=== PATIENT | male | born 1940 | race Caucasian/White ===

== ENCOUNTER 2021-01-31 06:24 | Observation (INO) | payer OTHER ==
[2021-01-31 07:03] VITALS: BMI 31.4
[2021-01-31] MEDS ORDERED: LACTATED RINGERS SOLUTION 1,000 ML/1,000 ML INFUS.BAG IV STA (07:48)
[2021-01-31 09:01] LABS: BASO % 0.2 % (0-2.0); EOS % 5.3 % (0-4.5); HEMATOCRIT 48.2 % (35.4-49); HEMOGLOBIN 16.5 GM/dL (11.7-16.9); LYMPH % 9.1 % (8-40); MCHC 34.2 g/dl (32.0-35.9); MEAN CELL VOLUME 84.6 fl (80-96); MEAN PLT VOLUME 8.4 fl (7.5-11.1); MONO % 8.1 % (3.8-10.2); NEUT % 77.3 % (42.8-82.8); PLATELET COUNT 223 10^3/uL (134-434); RBC 5.69 M/mm3 (4.00-5.60); RDW 13.8 % (11.9-15.9); WHITE BLOOD COUNT 10.2 K/mm3 (4.0-10.0)
[2021-01-31 09:03] LABS: VENOUS BASE EXCESS -4.6 mmol/L (-2-2); VENOUS O2 SATURATION 69.1 % (70-80); VENOUS PCO2 40.2 mmHg (38-52); VENOUS PH 7.334 (7.310-7.410)
[2021-01-31 09:21] LABS: CHLORIDE 112 mmol/L (98-107); SODIUM 142 mmol/L (136-145)
[2021-01-31 09:24] LABS: ALBUMIN 4.2 g/dl (3.4-5.0); ANION GAP 9 MMOL/L (8-16); BLOOD UREA NITROGEN 29.4 mg/dL (7-18); CALCIUM 9.5 mg/dL (8.5-10.1); CO2 20 mmol/L (21-32); GLUCOSE,RANDOM 106 mg/dL (74-106)
[2021-01-31 09:26] LABS: SGPT/ALT 50 U/L (13-61)
[2021-01-31 09:28] LABS: CREATININE 1.6 mg/dL (0.55-1.3); LDH 457 U/L (87-246); SGOT/AST 49 U/L (15-37)
[2021-01-31 09:29] LABS: ALK PHOS 102 U/L (45-117); TOT PROT 8.9 g/dl (6.4-8.2)
[2021-01-31 18:13] LABS: CALCIUM 8.9 mg/dL (8.5-10.1)
[2021-01-31 18:14] LABS: BLOOD UREA NITROGEN 31.4 mg/dL (7-18)
[2021-01-31 18:17] LABS: CREATININE 1.2 mg/dL (0.55-1.3)
[2021-01-31] MEDS ORDERED: LACTATED RINGERS SOLUTION 1,000 ML IV SCH (18:30)
[2021-01-31] MEDS ORDERED: HEPARIN NA (PORCINE) 5,000 UNITS/ML 1ML VIAL ONE (23:30)
[2021-01-31] MEDS: HEPARIN NA (PORCINE) 5,000 UNITS/ML 1ML VIAL SQ SCH (23:37)
[2021-02-01 06:02] VITALS: TEMP 98.2
[2021-02-01] MEDS ORDERED: HEPARIN NA (PORCINE) 5,000 UNITS/ML 1ML VIAL ONE ×2 (06:11→14:14)
[2021-02-01] MEDS: HEPARIN NA (PORCINE) 5,000 UNITS/ML 1ML VIAL SQ SCH ×2 (06:15→14:00)
[2021-02-01 08:38] LABS: CALCIUM 8.3 mg/dL (8.5-10.1)
[2021-02-01 08:40] LABS: BASO % 0.4 % (0-2.0); BLOOD UREA NITROGEN 28.7 mg/dL (7-18); EOS % 12.6 % (0-4.5); HEMATOCRIT 41.7 % (35.4-49); HEMOGLOBIN 14.2 GM/dL (11.7-16.9); LYMPH % 18.4 % (8-40); MCH 29.3 pg (25.7-33.7); MEAN CELL VOLUME 86.1 fl (80-96); MEAN PLT VOLUME 8.3 fl (7.5-11.1); MONO % 9.8 % (3.8-10.2); NEUT % 58.8 % (42.8-82.8); PLATELET COUNT 186 10^3/uL (134-434); RBC 4.85 M/mm3 (4.00-5.60); RDW 13.5 % (11.9-15.9); WHITE BLOOD COUNT 9.6 K/mm3 (4.0-10.0)
[2021-02-01 08:41] LABS: CREATININE 0.9 mg/dL (0.55-1.3)
[2021-02-01 08:43] LABS: PHOSPHOROUS 3.5 mg/dL (2.5-4.9)
[2021-02-01 08:45] LABS: BILIRUBIN,TOTAL 0.8 mg/dL (0.2-1)
[2021-02-01 08:52] LABS: ALBUMIN 3.3 g/dl (3.4-5.0); TOT PROT 6.8 g/dl (6.4-8.2)
[2021-02-01] MEDS ORDERED: CELECOXIB 200 MG CAPSULE PO SCH (14:45)
[2021-02-01 15:45] VITALS: BP 141/82; PULSE 100
== END 2021-02-01 16:38 | disposition home or self-care (01) ==
LOC: JER 06:24 → UNDOADMOB 09:48 → INTOOBSV 09:48 → JERBED 09:48
PROVIDERS: ADMIT Internal Medicine; ATTEND Nurse Practitioner Acute Care
PROC: 3E023GC Introduction of Other Therapeutic Substance into Muscle, Percutaneous Approach (ICD-10-PCS; principal; 2021-01-31)
PROC: 3E0337Z Introduction of Electrolytic and Water Balance Substance into Peripheral Vein, Percutaneous Approach (ICD-10-PCS; 2021-01-31)
DX: R53.1 Weakness (principal); R19.7 Diarrhea, unspecified; R11.10 Vomiting, unspecified; R00.2 Palpitations; I65.09 Occlusion and stenosis of unspecified vertebral artery; N17.9 Acute kidney failure, unspecified; Z29.9 Encounter for prophylactic measures, unspecified; E66.9 Obesity, unspecified; Z68.31 Body mass index [BMI] 31.0-31.9, adult; M25.562 Pain in left knee; M25.561 Pain in right knee
CPT/HCPCS: 36415; 71045-TC-FY; 80048; 80053; 80061; 82550; 82728; 82803; 83036; 83605; 83615; 83735; 84100; 84484; 85025; 86140; 87040; 87804; 93005; 93010; 96360; 96372; 99285-25; C9803; G0378; J1644; U0003; U0005

== ENCOUNTER 2021-05-09 03:52 | Emergency (ER) | payer OTHER ==
[2021-05-09 04:17] VITALS: PULSE 81; TEMP 98.1; BMI 36.0
[2021-05-09 06:03] VITALS: BP 145/87
== END 2021-05-09 06:10 | disposition home or self-care (01) ==
LOC: JER 03:52
DX: R09.89 Other specified symptoms and signs involving the circulatory and respiratory systems (principal)
CPT/HCPCS: 71045-TC-FY; 99283-25

== ENCOUNTER 2021-05-20 20:32 | Observation (INO) | payer OTHER ==
[2021-05-20 21:44] LABS: BASO % 0.9 % (0-2.0); EOS % 17.6 % (0-4.5); HEMATOCRIT 40.9 % (35.4-49); LYMPH % 32.1 % (8-40); MCH 28.5 pg (25.7-33.7); MCHC 34.2 g/dl (32.0-35.9); MEAN CELL VOLUME 83.4 fl (80-96); MEAN PLT VOLUME 7.8 fl (7.5-11.1); MONO % 7.8 % (3.8-10.2); NEUT % 41.6 % (42.8-82.8); PLATELET COUNT 188 10^3/uL (134-434); RDW 13.7 % (11.9-15.9); WHITE BLOOD COUNT 7.7 K/mm3 (4.0-10.0)
[2021-05-20 22:05] LABS: CALCIUM 8.2 mg/dL (8.5-10.1)
[2021-05-20 22:06] LABS: ALBUMIN 3.6 g/dl (3.4-5.0); BLOOD UREA NITROGEN 20.3 mg/dL (7-18)
[2021-05-20 22:09] LABS: CREATININE 0.9 mg/dL (0.55-1.3)
[2021-05-20 22:10] LABS: BILIRUBIN,TOTAL 0.4 mg/dL (0.2-1); TOT PROT 7.4 g/dl (6.4-8.2)
[2021-05-20 22:13] LABS: N-TERMINAL BNP 682.3 pg/ml (5-450)
[2021-05-20] MEDS ORDERED: ASPIRIN 81 MG CHEWABLE TABLETS PO ONE (23:30)
[2021-05-20] MEDS ORDERED: ASPIRIN 81 MG CHEWABLE TABLETS ONE (23:34)
[2021-05-21] MEDS ORDERED: ACETAMINOPHEN 325 MG TABLET (FP) PO PRN (01:10)
[2021-05-21] MEDS ORDERED: LOSARTAN POTASSIUM 25 MG TABLET PO SCH (01:15)
[2021-05-21] MEDS ORDERED: LOSARTAN POTASSIUM 50 MG TABLET PO SCH (07:45)
[2021-05-21] MEDS ORDERED: TAMSULOSIN HCL 0.4 MG CAP PO SCH (08:30)
[2021-05-21 09:29] LABS: HEMATOCRIT 41.4 % (35.4-49); HEMOGLOBIN 14.5 GM/dL (11.7-16.9); MCH 29.1 pg (25.7-33.7); MEAN CELL VOLUME 83.3 fl (80-96); PLATELET COUNT 173 10^3/uL (134-434); RBC 4.98 M/mm3 (4.00-5.60); RDW 13.7 % (11.9-15.9); WHITE BLOOD COUNT 6.4 K/mm3 (4.0-10.0)
[2021-05-21 09:46] LABS: EPI CELLS 1 /uL (0-25.1); HYALINE CASTS 0 /uL (0-3.1); URINE APPEARANCE CLEAR; URINE BACTERIA 4 /uL (0-1359); URINE BILIRUBIN NEGATIVE (NEGATIVE); URINE COLOR YELLOW; URINE GLUCOSE (UA) NEGATIVE (NEGATIVE); URINE KETONE NEGATIVE (NEGATIVE); URINE LEUK ESTERASE NEGATIVE (NEGATIVE); URINE NITRITE NEGATIVE (NEGATIVE); URINE PROTEIN NEGATIVE (NEGATIVE); URINE RBC 19 /uL (0-23.9); URINE UROBILINOGEN 0.2 mg/dL (0.2-1.0); URINE WBC 1 /uL (0-25.8)
[2021-05-21 09:49] LABS: CALCIUM 8.2 mg/dL (8.5-10.1)
[2021-05-21 09:50] LABS: BLOOD UREA NITROGEN 14.4 mg/dL (7-18)
[2021-05-21 09:53] LABS: CREATININE 0.8 mg/dL (0.55-1.3)
[2021-05-21] MEDS ORDERED: ENOXAPARIN NA (PORCINE) 40 MG/0.4 ML DISP.SYRIN SQ SCH (10:00)
[2021-05-21] MEDS ORDERED: ASPIRIN 81 MG CHEWABLE TABLETS PO SCH (10:00)
[2021-05-21] MEDS ORDERED: FINASTERIDE 5 MG TABLET (FP) PO SCH (10:00)
[2021-05-21] MEDS ORDERED: amLODIPine BESYLATE 5 MG TABLET (FP) PO SCH (10:00)
[2021-05-21 11:13] VITALS: BMI 30.5
[2021-05-21 17:39] VITALS: BP 120/89; PULSE 87
[2021-05-21 18:37] VITALS: TEMP 98.3
[2021-05-23 00:06] LABS: SARS-CoV-2 NAA Not Detected (Not Detected)
== END 2021-05-21 19:30 | disposition home or self-care (01) ==
LOC: JER 20:32 → JERBED 22:46 → J7W 05-21 08:03
PROVIDERS: ADMIT Hospitalist; ATTEND Internal Medicine
PROC: 3E023GC Introduction of Other Therapeutic Substance into Muscle, Percutaneous Approach (ICD-10-PCS; principal; 2021-05-20)
DX: I24.9 Acute ischemic heart disease, unspecified (principal); I10 Essential (primary) hypertension; E66.8 Other obesity; Z68.30 Body mass index [BMI] 30.0-30.9, adult; M79.10 Myalgia, unspecified site; Z59.00 Homelessness unspecified; F17.210 Nicotine dependence, cigarettes, uncomplicated; E66.9 Obesity, unspecified
CPT/HCPCS: 36415; 71045-TC-FY; 80048; 80053; 81003; 82550; 83036; 83880; 84443; 84484; 85025; 85027; 87086; 93005; 93010; 96372; 97116-GP; 97161-GP; 99285-25; C9803-CS; G0378; U0003; U0005

== ENCOUNTER 2021-09-17 08:33 | Inpatient (IN) | payer OTHER ==
[2021-09-17 08:56] VITALS: BP 183/92; PULSE 79; RESP 16; TEMP 97.9; BMI 29.9
[2021-09-17] MEDS ORDERED: MECLIZINE HCL 12.5 MG TABLET PO ONE (09:36)
[2021-09-17 09:44] LABS: BASO % 0.8 % (0-2.0); EOS % 12.1 % (0-4.5); HEMATOCRIT 42.3 % (35.4-49); HEMOGLOBIN 14.2 GM/dL (11.7-16.9); LYMPH % 26.9 % (8-40); MCH 28.8 pg (25.7-33.7); MCHC 33.7 g/dl (32.0-35.9); MEAN CELL VOLUME 85.3 fl (80-96); MEAN PLT VOLUME 8.2 fl (7.5-11.1); MONO % 7.6 % (3.8-10.2); NEUT % 52.6 % (42.8-82.8); PLATELET COUNT 223 10^3/uL (134-434); RBC 4.95 M/mm3 (4.00-5.60); RDW 13.8 % (11.9-15.9); WHITE BLOOD COUNT 8.2 K/mm3 (4.0-10.0)
[2021-09-17 09:52] LABS: ACTIVATED PTT 26.6 SECONDS (25.2-36.5); INR 1.15 (0.83-1.09); PROTHROMBIN TIME (PATIENT) 13.3 SEC (9.7-13.0)
[2021-09-17] MEDS ORDERED: MECLIZINE HCL 12.5 MG TABLET ONE (09:54)
[2021-09-17 10:30] LABS: CALCIUM 8.7 mg/dL (8.5-10.1)
[2021-09-17 10:31] LABS: ALBUMIN 3.8 g/dl (3.4-5.0); BLOOD UREA NITROGEN 24.4 mg/dL (7-18)
[2021-09-17 10:34] LABS: CREATININE 0.9 mg/dL (0.55-1.3)
[2021-09-17 10:35] LABS: BILIRUBIN,TOTAL 0.6 mg/dL (0.2-1); TOT PROT 7.3 g/dl (6.4-8.2)
[2021-09-17 10:39] LABS: N-TERMINAL BNP 309.8 pg/ml (5-450)
[2021-09-17] MEDS ORDERED: SODIUM CHLORIDE 1,000 ML IV STA (11:04)
[2021-09-17] MEDS ORDERED: LOSARTAN POTASSIUM 50 MG TABLET PO SCH (12:30)
[2021-09-17] MEDS ORDERED: SODIUM CHLORIDE 1,000 ML IV SCH (12:30)
[2021-09-18] MEDS ORDERED: TAMSULOSIN HCL 0.4 MG CAP PO SCH (08:30)
[2021-09-18] MEDS ORDERED: ASPIRIN 81 MG CHEWABLE TABLETS PO SCH (10:00)
[2021-09-18] MEDS ORDERED: FINASTERIDE 5 MG TABLET (FP) PO SCH (10:00)
[2021-09-18] MEDS ORDERED: ENOXAPARIN NA (PORCINE) 40 MG/0.4 ML DISP.SYRIN SQ SCH (10:00)
== END 2021-09-17 15:54 | disposition left against medical advice (07) | DRG 203 ==
LOC: JER 08:33 → JERBED 10:42
PROVIDERS: ADMIT Internal Medicine; ATTEND Internal Medicine
DX: R07.89 Other chest pain (principal); G93.89 Other specified disorders of brain; E86.0 Dehydration; F17.200 Nicotine dependence, unspecified, uncomplicated; I10 Essential (primary) hypertension; R06.02 Shortness of breath; R42 Dizziness and giddiness; R53.1 Weakness; R53.81 Other malaise; R53.83 Other fatigue; Z59.00 Homelessness unspecified; Z91.14 Patient's other noncompliance with medication regimen
CPT/HCPCS: 0241U-QW; 36415; 70450-TC; 71045-TC-FY; 80053; 83880; 84484; 85025; 85610; 85730; 93005; 93010; 99285-25

== ENCOUNTER 2021-09-19 20:59 | Inpatient (IN) | payer OTHER ==
[2021-09-19] MEDS ORDERED: ALBUTEROL SO4 2.5/IPRATROPIUM 0.5 INH SOL 3 ML VIAL.NEB. NEB ONE ×2 (21:57→22:13)
[2021-09-19 23:13] LABS: BASO % 1.1 % (0-2.0); EOS % 15.2 % (0-4.5); HEMATOCRIT 39.5 % (35.4-49); HEMOGLOBIN 13.5 GM/dL (11.7-16.9); LYMPH % 29.7 % (8-40); MCHC 34.3 g/dl (32.0-35.9); MEAN CELL VOLUME 84.6 fl (80-96); MEAN PLT VOLUME 7.7 fl (7.5-11.1); MONO % 9.9 % (3.8-10.2); NEUT % 44.1 % (42.8-82.8); PLATELET COUNT 201 10^3/uL (134-434); RBC 4.67 M/mm3 (4.00-5.60); RDW 13.9 % (11.9-15.9); WHITE BLOOD COUNT 7.5 K/mm3 (4.0-10.0)
[2021-09-20 00:25] LABS: CALCIUM 8.6 mg/dL (8.5-10.1)
[2021-09-20 00:26] LABS: ALBUMIN 3.5 g/dl (3.4-5.0); BLOOD UREA NITROGEN 17.6 mg/dL (7-18)
[2021-09-20 00:29] LABS: CREATININE 0.9 mg/dL (0.55-1.3)
[2021-09-20 00:30] LABS: TOT PROT 6.9 g/dl (6.4-8.2)
[2021-09-20 00:31] LABS: BILIRUBIN,TOTAL 0.4 mg/dL (0.2-1)
[2021-09-20 00:32] LABS: N-TERMINAL BNP 898.7 pg/ml (5-450)
[2021-09-20] MEDS ORDERED: hydrALAZINE HCL 20 MG/ML VIAL IVPUSH ONE (02:43)
[2021-09-20] MEDS ORDERED: hydrALAZINE HCL 20 MG/ML VIAL ONE (02:50)
[2021-09-20] MEDS ORDERED: FUROSEMIDE 40 MG/4 ML INJECTABLE VIAL IVPUSH ONE (04:38)
[2021-09-20] MEDS ORDERED: FUROSEMIDE 40 MG/4 ML INJECTABLE VIAL ONE (05:02)
[2021-09-20 05:48] LABS: PH,URINE 7.5 (5.0-8.0); URINE APPEARANCE CLEAR; URINE BILIRUBIN NEGATIVE (NEGATIVE); URINE COLOR YELLOW; URINE GLUCOSE (UA) NEGATIVE (NEGATIVE); URINE KETONE NEGATIVE (NEGATIVE); URINE LEUK ESTERASE NEGATIVE (NEGATIVE); URINE NITRITE NEGATIVE (NEGATIVE); URINE PROTEIN NEGATIVE (NEGATIVE); URINE UROBILINOGEN 0.2 mg/dL (0.2-1.0)
[2021-09-20 05:58] LABS: COCAINE, UR NEGATIVE (NEGATIVE); METHADONE, UR NEGATIVE (NEGATIVE); OPIATES, URI NEGATIVE (NEGATIVE); PHENCYCLIDINE,URINE NEGATIVE (NEGATIVE); URINE BENZODIAZEPINES NEGATIVE (NEGATIVE)
[2021-09-20 06:18] VITALS: TEMP 97.8; BMI 32.0
[2021-09-20] MEDS ORDERED: LISINOPRIL 20 MG TABLET PO ONE ×2 (06:32→14:00)
[2021-09-20 06:37] LABS: URINE AMPHETAMINES NEGATIVE (NEGATIVE); URINE BARBITURATES NEGATIVE (NEGATIVE)
[2021-09-20] MEDS ORDERED: TAMSULOSIN HCL 0.4 MG CAP PO SCH (08:30)
[2021-09-20] MEDS ORDERED: ENOXAPARIN NA (PORCINE) 40 MG/0.4 ML DISP.SYRIN SQ SCH (10:00)
[2021-09-20] MEDS ORDERED: HYDROCHLOROTHIAZIDE 12.5 MG CAPSULE (FP) PO SCH (10:00)
[2021-09-20 11:33] VITALS: PULSE 91
[2021-09-20 11:37] LABS: HEMATOCRIT 44.5 % (35.4-49); HEMOGLOBIN 15.1 GM/dL (11.7-16.9); MCH 28.9 pg (25.7-33.7); MCHC 33.9 g/dl (32.0-35.9); MEAN CELL VOLUME 85.3 fl (80-96); MEAN PLT VOLUME 8.2 fl (7.5-11.1); PLATELET COUNT 231 10^3/uL (134-434); RBC 5.22 M/mm3 (4.00-5.60); RDW 13.8 % (11.9-15.9); WHITE BLOOD COUNT 8.2 K/mm3 (4.0-10.0)
[2021-09-20 12:00] LABS: CHOLESTEROL 147 mg/dL (50-200); TRIGLYCERIDES 88 mg/dL (0-150)
[2021-09-20 12:01] LABS: LDL CHOLESTEROL (ONLY SJRH) 97 mg/dL (5-100)
[2021-09-20 12:02] LABS: CALCIUM 8.9 mg/dL (8.5-10.1)
[2021-09-20 12:03] LABS: ALBUMIN 3.8 g/dl (3.4-5.0); BLOOD UREA NITROGEN 17.2 mg/dL (7-18); HDL CHOLESTEROL 42 mg/dL (40-60); MAGNESIUM 2.2 mg/dL (1.8-2.4)
[2021-09-20 12:06] LABS: CREATININE 0.9 mg/dL (0.55-1.3); PHOSPHOROUS 3.3 mg/dL (2.5-4.9)
[2021-09-20 12:07] LABS: BILIRUBIN,TOTAL 0.8 mg/dL (0.2-1); TOT PROT 7.4 g/dl (6.4-8.2)
[2021-09-20 14:00] VITALS: BP 134/77; RESP 24
[2021-09-21] MEDS ORDERED: HYDROCHLOROTHIAZIDE 12.5 MG CAPSULE (FP) PO SCH (10:00)
[2021-09-21] MEDS ORDERED: LISINOPRIL 20 MG TABLET PO SCH (10:00)
== END 2021-09-20 12:45 | disposition left against medical advice (07) | DRG 199 ==
LOC: JER 20:59 → JERBED 09-20 02:23 → OBSVTOIN 09-20 03:08 → J2W 09-20 06:40
PROVIDERS: ADMIT Internal Medicine; ATTEND Internal Medicine
DX: I16.0 Hypertensive urgency (principal); I10 Essential (primary) hypertension; E66.9 Obesity, unspecified; I44.4 Left anterior fascicular block; M19.90 Unspecified osteoarthritis, unspecified site; N40.0 Benign prostatic hyperplasia without lower urinary tract symptoms; Z59.00 Homelessness unspecified; Z68.32 Body mass index [BMI] 32.0-32.9, adult; Z91.14 Patient's other noncompliance with medication regimen; R07.89 Other chest pain; R06.02 Shortness of breath
CPT/HCPCS: 36415; 71045-TC-FY; 80053; 80061; 80307; 81003; 83036; 83735; 83880; 84100; 84443; 84484; 85025; 85027; 85379; 93005; 93010; 93306-TC; 99285-25; C9803-CS; G0378; U0003; U0005

== ENCOUNTER 2021-09-22 12:25 | Emergency (ER) | payer OTHER ==
[2021-09-22 12:52] VITALS: BP 123/86; PULSE 93; RESP 18; TEMP 98.5; BMI 33.3
[2021-09-22 15:14] LABS: BLOOD UREA NITROGEN 38.2 mg/dL (7-18); CALCIUM 9.3 mg/dL (8.5-10.1); MAGNESIUM 2.5 mg/dL (1.8-2.4)
[2021-09-22 15:15] LABS: BASO % 0.7 % (0-2.0); CREATININE 1.5 mg/dL (0.55-1.3); EOS % 15.8 % (0-4.5); HEMATOCRIT 44.7 % (35.4-49); HEMOGLOBIN 14.9 GM/dL (11.7-16.9); LYMPH % 24.5 % (8-40); MCH 28.6 pg (25.7-33.7); MCHC 33.4 g/dl (32.0-35.9); MEAN CELL VOLUME 85.8 fl (80-96); MEAN PLT VOLUME 8.5 fl (7.5-11.1); MONO % 8.6 % (3.8-10.2); NEUT % 50.4 % (42.8-82.8); PLATELET COUNT 233 10^3/uL (134-434); RBC 5.21 M/mm3 (4.00-5.60); RDW 14.2 % (11.9-15.9); WHITE BLOOD COUNT 8.6 K/mm3 (4.0-10.0)
[2021-09-22 15:16] LABS: BILIRUBIN,TOTAL 1.1 mg/dL (0.2-1); TOT PROT 7.8 g/dl (6.4-8.2)
== END 2021-09-22 14:26 | disposition left against medical advice (07) ==
LOC: JER 12:25
DX: R07.9 Chest pain, unspecified (principal)
CPT/HCPCS: 36415; 71046-TC-FY; 80053; 83735; 84484; 85025; 93005; 93010; 99285-25; C9803-CS; U0003; U0005

== ENCOUNTER 2021-09-29 07:53 | Emergency (ER) | payer OTHER ==
[2021-09-29 08:38] VITALS: BP 121/71; PULSE 74; RESP 18; TEMP 97.7; BMI 33.3
[2021-09-29] MEDS ORDERED: ALBUTEROL SO4 2.5/IPRATROPIUM 0.5 INH SOL 3 ML VIAL.NEB. NEB ONE ×2 (08:54→10:03)
[2021-09-29 09:56] LABS: BASO % 1.1 % (0-2.0); HEMATOCRIT 41.5 % (35.4-49); HEMOGLOBIN 14.3 GM/dL (11.7-16.9); LYMPH % 21.1 % (8-40); MCH 29.7 pg (25.7-33.7); MCHC 34.4 g/dl (32.0-35.9); MEAN CELL VOLUME 86.2 fl (80-96); MEAN PLT VOLUME 8.8 fl (7.5-11.1); MONO % 6.3 % (3.8-10.2); NEUT % 55.5 % (42.8-82.8); PLATELET COUNT 214 10^3/uL (134-434); RBC 4.81 M/mm3 (4.00-5.60); RDW 13.7 % (11.9-15.9); WHITE BLOOD COUNT 7.8 K/mm3 (4.0-10.0)
[2021-09-29 10:43] LABS: ALBUMIN 3.7 g/dl (3.4-5.0); BILIRUBIN,TOTAL 0.7 mg/dL (0.2-1); BLOOD UREA NITROGEN 27.6 mg/dL (7-18); CALCIUM 9.1 mg/dL (8.5-10.1); CREATININE 0.8 mg/dL (0.55-1.3); TOT PROT 7.5 g/dl (6.4-8.2)
== END 2021-09-29 12:46 | disposition home or self-care (01) ==
LOC: JER 07:53
PROC: 3E0F7GC Introduction of Other Therapeutic Substance into Respiratory Tract, Via Natural or Artificial Opening (ICD-10-PCS; principal; 2021-09-29)
DX: R06.02 Shortness of breath (principal)
CPT/HCPCS: 36415; 71046-TC-FY; 80053; 85025; 93005; 93010; 99285-25

== ENCOUNTER → 2021-10-03 | Emergency (ER) | payer OTHER ==
[2021-10-03 10:24] VITALS: BP 145/81; PULSE 78; RESP 18; TEMP 97.9; BMI 29.9
== END | disposition left against medical advice (07) ==
LOC: JER 10:00
DX: R07.9 Chest pain, unspecified (principal)
CPT/HCPCS: 93005; 93010; 99283-25

== ENCOUNTER 2021-10-04 17:04 | Emergency (ER) | payer OTHER ==
[2021-10-04 17:17] VITALS: BP 154/97; PULSE 77; RESP 18; TEMP 98.3; BMI 29.9
== END 2021-10-04 21:21 | disposition home or self-care (01) ==
LOC: JER 17:04
DX: Z00.00 Encounter for general adult medical examination without abnormal findings (principal)
CPT/HCPCS: 93005; 93010; 99284-25

== ENCOUNTER 2021-10-15 09:23 | Observation (INO) | payer OTHER ==
[2021-10-15 09:43] VITALS: BP 168/94; PULSE 75; RESP 18; TEMP 98.1; BMI 29.2
[2021-10-15 11:07] LABS: HEMATOCRIT 42.9 % (35.4-49); HEMOGLOBIN 14.2 GM/dL (11.7-16.9); MCH 28.5 pg (25.7-33.7); MCHC 33.2 g/dl (32.0-35.9); MEAN PLT VOLUME 8.1 fl (7.5-11.1); PLATELET COUNT 207 10^3/uL (134-434); RBC 4.99 M/mm3 (4.00-5.60); RDW 13.4 % (11.9-15.9); WHITE BLOOD COUNT 7.6 K/mm3 (4.0-10.0)
[2021-10-15 11:16] LABS: CALCIUM 8.9 mg/dL (8.5-10.1)
[2021-10-15 11:17] LABS: ALBUMIN 3.8 g/dl (3.4-5.0)
[2021-10-15 11:18] LABS: ACTIVATED PTT 29.3 SECONDS (25.2-36.5); INR 1.15 (0.83-1.09); PROTHROMBIN TIME (PATIENT) 13.2 SEC (9.7-13.0)
[2021-10-15 11:20] LABS: CREATININE 0.9 mg/dL (0.55-1.3); TOT PROT 7.3 g/dl (6.4-8.2)
[2021-10-15 11:22] LABS: BILIRUBIN,TOTAL 0.7 mg/dL (0.2-1)
[2021-10-15 12:20] LABS: ANISOCYTOSIS 2+; MACROCYTOSIS 0; OVALOCYTE 1+; TEAR DROP CELLS 1+
[2021-10-16] MEDS ORDERED: TAMSULOSIN HCL 0.4 MG CAP PO SCH (08:30)
[2021-10-16] MEDS ORDERED: FINASTERIDE 5 MG TABLET (FP) PO SCH (10:00)
[2021-10-16] MEDS ORDERED: ASPIRIN 81 MG CHEWABLE TABLETS PO SCH (10:00)
[2021-10-16] MEDS ORDERED: LOSARTAN POTASSIUM 50 MG TABLET PO SCH (10:00)
== END 2021-10-15 15:20 | disposition left against medical advice (07) ==
LOC: JER 09:23 → JERBED 10:09
PROVIDERS: ADMIT Internal Medicine; ATTEND Internal Medicine
DX: I11.0 Hypertensive heart disease with heart failure (principal); R06.02 Shortness of breath; N40.0 Benign prostatic hyperplasia without lower urinary tract symptoms; D64.9 Anemia, unspecified
CPT/HCPCS: 0241U-QW; 36415; 71045-TC-FY; 80053; 83880; 84484; 85025; 85610; 85730; 93005; 93010; 99285-25; G0378

== ENCOUNTER 2021-10-15 16:47 | Observation (INO) | payer OTHER ==
[2021-10-15 17:13] VITALS: BP 161/95; PULSE 83; RESP 22; TEMP 98.6; BMI 39.9
[2021-10-15] MEDS ORDERED: ALBUTEROL SO4 HFA INHALER IH PRN (18:27)
[2021-10-15] MEDS ORDERED: FUROSEMIDE 20 MG TABLET (FP) PO SCH (18:30)
[2021-10-16] MEDS ORDERED: TAMSULOSIN HCL 0.4 MG CAP PO SCH (08:30)
[2021-10-16] MEDS ORDERED: LOSARTAN POTASSIUM 50 MG TABLET PO SCH (10:00)
[2021-10-16] MEDS ORDERED: ASPIRIN 81 MG CHEWABLE TABLETS PO SCH (10:00)
[2021-10-16] MEDS ORDERED: FINASTERIDE 5 MG TABLET (FP) PO SCH (10:00)
== END 2021-10-15 19:22 | disposition left against medical advice (07) ==
LOC: JER 16:47 → JERBED 17:58
PROVIDERS: ADMIT Internal Medicine; ATTEND Internal Medicine
DX: R07.9 Chest pain, unspecified (principal); R06.02 Shortness of breath; I10 Essential (primary) hypertension; J44.9 Chronic obstructive pulmonary disease, unspecified; N40.0 Benign prostatic hyperplasia without lower urinary tract symptoms; Z87.891 Personal history of nicotine dependence; E66.8 Other obesity; Z68.39 Body mass index [BMI] 39.0-39.9, adult
CPT/HCPCS: 99285-25; G0378

== ENCOUNTER 2021-11-07 09:08 | Observation (INO) | payer OTHER ==
[2021-11-07 10:36] LABS: HEMATOCRIT 41.1 % (35.4-49); HEMOGLOBIN 13.6 GM/dL (11.7-16.9); MCH 28.4 pg (25.7-33.7); MCHC 33.1 g/dl (32.0-35.9); MEAN CELL VOLUME 85.7 fl (80-96); PLATELET COUNT 215 10^3/uL (134-434); RDW 13.5 % (11.9-15.9); WHITE BLOOD COUNT 7.3 K/mm3 (4.0-10.0)
[2021-11-07 10:50] LABS: ALBUMIN 3.4 g/dl (3.4-5.0); CALCIUM 8.5 mg/dL (8.5-10.1)
[2021-11-07 10:54] LABS: CREATININE 0.9 mg/dL (0.55-1.3)
[2021-11-07 10:55] LABS: BILIRUBIN,TOTAL 0.7 mg/dL (0.2-1); TOT PROT 6.8 g/dl (6.4-8.2)
[2021-11-07 12:06] LABS: ANISOCYTOSIS 0; MACROCYTOSIS 0
[2021-11-07] MEDS ORDERED: AZITHROMYCIN IVPB 500 MG in DEXTROSE 5%-WATER - 250 ML IVPB ONE (12:27)
[2021-11-07] MEDS ORDERED: CEFTRIAXONE 1,000 MG in DEXTROSE 5%-WATER - 50 ML IVPB ONE (12:27)
[2021-11-07] MEDS ORDERED: CEFTRIAXONE 1 GM/50 ML BAG ONE (12:36)
[2021-11-07] MEDS ORDERED: AZITHROMYCIN IVPB 500 MG/250 ML BAG IVPB ONE (12:36)
[2021-11-07] MEDS ORDERED: ACETAMINOPHEN 325 MG TABLET (FP) PO PRN (13:53)
[2021-11-07] MEDS ORDERED: guaiFENesin 200 MG/10 ML 10 ML UNIT-DOSE CUPS PO PRN (14:59)
[2021-11-07] MEDS ORDERED: MELATONIN 5 MG TABLETS PO PRN (15:00)
[2021-11-07] MEDS: NYSTATIN POWDER 100,000 UNITS/GM - 15 GM TOPICAL POWDER TP SCH ×2 (15:04→23:41)
[2021-11-07] MEDS ORDERED: LOSARTAN POTASSIUM 50 MG TABLET ONE (17:39)
[2021-11-07] MEDS: LOSARTAN POTASSIUM 50 MG TABLET PO SCH (17:41)
[2021-11-07 20:30] VITALS: RESP 18
[2021-11-07 23:16] VITALS: BMI 31.7
[2021-11-08] MEDS: NYSTATIN POWDER 100,000 UNITS/GM - 15 GM TOPICAL POWDER TP SCH ×3 (06:29→21:29)
[2021-11-08] MEDS ORDERED: CEFTRIAXONE 1 GM in DEXTROSE 5%-WATER - 50 ML IVPB SCH (10:00)
[2021-11-08] MEDS ORDERED: AZITHROMYCIN IVPB 250 MG in DEXTROSE 5%-WATER - 250 ML IVPB SCH (10:00)
[2021-11-08] MEDS: LOSARTAN POTASSIUM 50 MG TABLET PO SCH (11:51)
[2021-11-08] MEDS: ENOXAPARIN NA (PORCINE) 40 MG/0.4 ML DISP.SYRIN SQ SCH (11:51)
[2021-11-08] MEDS ORDERED: amLODIPine BESYLATE 10 MG TABLET (FP) PO SCH (12:54)
[2021-11-08] MEDS: AZITHROMYCIN 250 MG TABLET PO SCH (12:59)
[2021-11-08] MEDS: CEFUROXIME AXETIL 500 MG TABLET PO SCH ×2 (12:59→21:29)
[2021-11-08] MEDS ORDERED: amLODIPine BESYLATE 10 MG TABLET (FP) PO ONE (14:35)
[2021-11-08] MEDS ORDERED: LOSARTAN POTASSIUM 50 MG TABLET PO SCH (22:00)
[2021-11-09] MEDS: NYSTATIN POWDER 100,000 UNITS/GM - 15 GM TOPICAL POWDER TP SCH ×2 (06:11→14:25)
[2021-11-09 09:56] LABS: EOS % 18.9 % (0-4.5); HEMATOCRIT 44.4 % (35.4-49); HEMOGLOBIN 14.8 GM/dL (11.7-16.9); LYMPH % 25.4 % (8-40); MCH 28.6 pg (25.7-33.7); MCHC 33.4 g/dl (32.0-35.9); MEAN CELL VOLUME 85.7 fl (80-96); MEAN PLT VOLUME 8.2 fl (7.5-11.1); MONO % 7.2 % (3.8-10.2); NEUT % 47.5 % (42.8-82.8); PLATELET COUNT 232 10^3/uL (134-434); RBC 5.18 M/mm3 (4.00-5.60); RDW 13.2 % (11.9-15.9); WHITE BLOOD COUNT 6.4 K/mm3 (4.0-10.0)
[2021-11-09] MEDS ORDERED: amLODIPine BESYLATE 5 MG TABLET (FP) PO SCH (10:00)
[2021-11-09] MEDS ORDERED: FUROSEMIDE 40 MG TABLET (FP) PO SCH (10:00)
[2021-11-09] MEDS ORDERED: LOSARTAN POTASSIUM 50 MG TABLET PO SCH (10:00)
[2021-11-09 10:33] LABS: BLOOD UREA NITROGEN 18.6 mg/dL (7-18); MAGNESIUM 2.2 mg/dL (1.8-2.4)
[2021-11-09 10:36] LABS: CREATININE 0.9 mg/dL (0.55-1.3); PHOSPHOROUS 3.8 mg/dL (2.5-4.9)
[2021-11-09] MEDS: ENOXAPARIN NA (PORCINE) 40 MG/0.4 ML DISP.SYRIN SQ SCH (11:00)
[2021-11-09] MEDS: AZITHROMYCIN 250 MG TABLET PO SCH (11:00)
[2021-11-09] MEDS: CEFUROXIME AXETIL 500 MG TABLET PO SCH (11:00)
[2021-11-09] MEDS ORDERED: amLODIPine BESYLATE 10 MG TABLET (FP) PO SCH ×2 (12:54→22:00)
[2021-11-09 15:25] VITALS: BP 131/67; PULSE 81; TEMP 97.9
== END 2021-11-09 17:45 | disposition home or self-care (01) ==
LOC: JER 09:08 → JERBED 12:33 → J5S 22:01
PROVIDERS: ADMIT Internal Medicine; ATTEND Internal Medicine
PROC: 3E03329 Introduction of Other Anti-infective into Peripheral Vein, Percutaneous Approach (ICD-10-PCS; principal; 2021-11-07)
PROC: 3E023GC Introduction of Other Therapeutic Substance into Muscle, Percutaneous Approach (ICD-10-PCS; 2021-11-07)
DX: J18.9 Pneumonia, unspecified organism (principal); I10 Essential (primary) hypertension; N40.0 Benign prostatic hyperplasia without lower urinary tract symptoms; R21 Rash and other nonspecific skin eruption; Z29.8 Encounter for other specified prophylactic measures; Z91.14 Patient's other noncompliance with medication regimen; Z59.00 Homelessness unspecified; E66.8 Other obesity; Z68.31 Body mass index [BMI] 31.0-31.9, adult
CPT/HCPCS: 0241U-QW; 36415; 71045-TC-FY; 80048; 80053; 80061; 83036; 83735; 84100; 84439; 84443; 84484; 85025; 87899; 93005; 93010; 99285-25; G0378

== ENCOUNTER 2021-11-19 14:11 | Emergency (ER) | payer OTHER ==
[2021-11-19 14:37] VITALS: BP 121/78; PULSE 85; RESP 17; TEMP 98; BMI 32.3
== END 2021-11-19 16:33 | disposition left against medical advice (07) ==
LOC: JER 14:11
DX: R07.89 Other chest pain (principal)
CPT/HCPCS: 93005; 93010; 99284-25

== ENCOUNTER 2021-11-19 19:06 | Emergency (ER) | payer OTHER ==
[2021-11-19 19:15] VITALS: BP 100/61; PULSE 65; RESP 19; TEMP 98.6; BMI 32.3
== END 2021-11-19 22:12 | disposition home or self-care (01) ==
LOC: JER 19:06
DX: R07.89 Other chest pain (principal)
CPT/HCPCS: 36415; 71046-TC-FY; 83880; 84484; 93005; 93010; 99284-25

== ENCOUNTER 2022-01-07 09:31 | Emergency (ER) | payer OTHER ==
[2022-01-07 09:47] VITALS: PULSE 80; RESP 18; TEMP 97.6; BMI 32.3
[2022-01-07 12:15] LABS: EPI CELLS 4 /uL (0-25.1); HYALINE CASTS 0 /uL (0-3.1); URINE APPEARANCE CLEAR; URINE BACTERIA 20 /uL (0-1359); URINE BILIRUBIN NEGATIVE (NEGATIVE); URINE COLOR YELLOW; URINE GLUCOSE (UA) NEGATIVE (NEGATIVE); URINE KETONE NEGATIVE (NEGATIVE); URINE LEUK ESTERASE TRACE (NEGATIVE); URINE NITRITE NEGATIVE (NEGATIVE); URINE PROTEIN TRACE (NEGATIVE); URINE RBC 12 /uL (0-23.9); URINE UROBILINOGEN 0.2 mg/dL (0.2-1.0); URINE WBC 6 /uL (0-25.8)
[2022-01-07 12:35] LABS: CALCIUM 8.5 mg/dL (8.5-10.1)
[2022-01-07 12:37] LABS: ALBUMIN 3.8 g/dl (3.4-5.0); BLOOD UREA NITROGEN 23.3 mg/dL (7-18)
[2022-01-07 12:40] LABS: BILIRUBIN,TOTAL 0.8 mg/dL (0.2-1); CREATININE 0.9 mg/dL (0.55-1.3); TOT PROT 7.4 g/dl (6.4-8.2)
[2022-01-07 12:41] LABS: BASO % 0.7 % (0-2.0); EOS % 16.9 % (0-4.5); HEMATOCRIT 43.2 % (35.4-49); HEMOGLOBIN 14.5 GM/dL (11.7-16.9); LYMPH % 26.9 % (8-40); MCH 28.4 pg (25.7-33.7); MCHC 33.7 g/dl (32.0-35.9); MEAN CELL VOLUME 84.5 fl (80-96); MEAN PLT VOLUME 7.4 fl (7.5-11.1); MONO % 8.9 % (3.8-10.2); NEUT % 46.6 % (42.8-82.8); PLATELET COUNT 214 10^3/uL (134-434); RBC 5.11 M/mm3 (4.00-5.60); RDW 13.2 % (11.9-15.9); WHITE BLOOD COUNT 6.8 K/mm3 (4.0-10.0)
[2022-01-07 15:57] VITALS: BP 137/108
== END 2022-01-07 15:57 | disposition home or self-care (01) ==
LOC: JER 09:31
DX: N40.1 Benign prostatic hyperplasia with lower urinary tract symptoms (principal)
CPT/HCPCS: 36415; 71046-TC-FY; 80053; 81003; 82962; 84484; 85025; 87086; 93005; 93010; 99285-25

== ENCOUNTER 2022-01-13 23:13 | Emergency (ER) | payer OTHER ==
[2022-01-13 23:25] VITALS: BP 160/89; PULSE 90; RESP 20; TEMP 98.9; BMI 40.7
== END 2022-01-14 06:33 | disposition home or self-care (01) ==
LOC: JER 23:13
DX: J06.9 Acute upper respiratory infection, unspecified (principal)
CPT/HCPCS: 0241U-QW; 99284-25

== ENCOUNTER 2022-03-13 03:21 | Observation (INO) | payer OTHER ==
[2022-03-13 03:31] VITALS: RESP 18; TEMP 97.6; BMI 31.3
[2022-03-13] MEDS ORDERED: NITROGLYCERIN SUBLINGUAL 1/150 0.4 MG TAB SL ONE (04:11)
[2022-03-13 04:43] VITALS: BP 177/88
[2022-03-13] MEDS ORDERED: ACETAMINOPHEN 1000 MG/100 ML BAG IVPB ONE (04:45)
[2022-03-13] MEDS ORDERED: ACETAMINOPHEN INJECTION 100 ML IVPB ONE (04:48)
[2022-03-13 05:50] LABS: BASO % 0.6 % (0-2.0); EOS % 14.4 % (0-4.5); HEMATOCRIT 45.2 % (35.4-49); LYMPH % 24.2 % (8-40); MCH 28.2 pg (25.7-33.7); MCHC 33.1 g/dl (32.0-35.9); MEAN CELL VOLUME 85.1 fl (80-96); MEAN PLT VOLUME 8.1 fl (7.5-11.1); MONO % 8.2 % (3.8-10.2); NEUT % 52.6 % (42.8-82.8); PLATELET COUNT 206 10^3/uL (134-434); RBC 5.32 M/mm3 (4.00-5.60); RDW 13.9 % (11.9-15.9); WHITE BLOOD COUNT 6.9 K/mm3 (4.0-10.0)
[2022-03-13] MEDS ORDERED: FUROSEMIDE 40 MG TABLET (FP) PO ONE (06:03)
[2022-03-13] MEDS ORDERED: FUROSEMIDE 40 MG TABLET (FP) ONE (06:06)
[2022-03-13] MEDS ORDERED: amLODIPine BESYLATE 10 MG TABLET (FP) PO ONE (06:06)
[2022-03-13] MEDS ORDERED: LOSARTAN POTASSIUM 50 MG TABLET ONE (06:06)
[2022-03-13] MEDS ORDERED: TAMSULOSIN HCL 0.4 MG CAP ONE (06:06)
[2022-03-13] MEDS ORDERED: amLODIPine BESYLATE 10 MG TABLET (FP) ONE (06:07)
[2022-03-13 06:12] LABS: BLOOD UREA NITROGEN 21.9 mg/dL (7-18); CALCIUM 8.9 mg/dL (8.5-10.1)
[2022-03-13 06:13] LABS: ALBUMIN 3.8 g/dl (3.4-5.0)
[2022-03-13 06:16] LABS: CREATININE 0.8 mg/dL (0.55-1.3)
[2022-03-13 06:17] LABS: BILIRUBIN,TOTAL 0.5 mg/dL (0.2-1); TOT PROT 7.5 g/dl (6.4-8.2)
[2022-03-13] MEDS ORDERED: TAMSULOSIN HCL 0.4 MG CAP PO ONE (06:26)
[2022-03-13] MEDS ORDERED: LOSARTAN POTASSIUM 50 MG TABLET PO ONE (06:27)
== END 2022-03-13 07:50 | disposition left against medical advice (07) ==
LOC: JER 03:21 → JERBED 06:31
PROVIDERS: ADMIT Internal Medicine; ATTEND Internal Medicine
PROC: 3E033NZ Introduction of Analgesics, Hypnotics, Sedatives into Peripheral Vein, Percutaneous Approach (ICD-10-PCS; principal; 2022-03-13)
DX: R06.02 Shortness of breath (principal); R10.9 Unspecified abdominal pain; R05.9 Cough, unspecified; R07.9 Chest pain, unspecified; I10 Essential (primary) hypertension; E11.9 Type 2 diabetes mellitus without complications; N40.0 Benign prostatic hyperplasia without lower urinary tract symptoms
CPT/HCPCS: 0241U-QW; 36415; 71045-TC-FY; 80053; 84484; 85025; 93005; 93010; 96374; 99285-25; G0378

== ENCOUNTER 2022-03-13 16:37 | Emergency (ER) | payer OTHER ==
[2022-03-13 17:57] VITALS: BP 139/76; PULSE 86; RESP 16; TEMP 97.7; BMI 28.7
== END 2022-03-13 21:23 | disposition left against medical advice (07) ==
LOC: JER 16:37
DX: M79.604 Pain in right leg (principal); M79.605 Pain in left leg; Z59.00 Homelessness unspecified
CPT/HCPCS: 93005; 93010; 99283-25

== ENCOUNTER 2022-03-23 09:12 | Emergency (ER) | payer OTHER ==
[2022-03-23 09:36] VITALS: BP 187/87; PULSE 72; RESP 16; TEMP 97.8; BMI 28.7
[2022-03-23] MEDS ORDERED: ACETAMINOPHEN 325 MG TABLET (FP) PO ONE (11:07)
[2022-03-23] MEDS ORDERED: ACETAMINOPHEN 325 MG TABLET (FP) ONE (11:08)
[2022-03-23] MEDS ORDERED: IBUPROFEN 400 MG TABLET (FP) PO ONE ×2 (11:08)
== END 2022-03-23 12:09 | disposition home or self-care (01) ==
LOC: JERFT 09:12 → JER 09:12 → JERFT 12:09
DX: M54.50 Low back pain, unspecified (principal)
CPT/HCPCS: 99283-25

== ENCOUNTER 2022-03-28 15:39 | Emergency (ER) | payer OTHER ==
[2022-03-28 15:55] VITALS: BP 170/82; PULSE 88; RESP 20; TEMP 97.9; BMI 28.7
== END 2022-03-28 18:30 | disposition left against medical advice (07) ==
LOC: JER 15:39
DX: R07.9 Chest pain, unspecified (principal); Z59.00 Homelessness unspecified
CPT/HCPCS: 71046-TC-FY; 93005; 93010; 99284-25

== ENCOUNTER 2022-03-29 11:24 | Emergency (ER) | payer OTHER ==
[2022-03-29 11:32] VITALS: BP 173/86; PULSE 76; RESP 18; TEMP 98.3; BMI 28.7
[2022-03-29] MEDS ORDERED: ACETAMINOPHEN 325 MG TABLET (FP) PO ONE ×2 (11:53→12:27)
[2022-03-29] MEDS ORDERED: ACETAMINOPHEN 325 MG TABLET (FP) ONE (12:24)
[2022-03-29 13:28] LABS: BASO % 0.6 % (0-2.0); EOS % 16.6 % (0-4.5); HEMATOCRIT 40.4 % (35.4-49); HEMOGLOBIN 13.6 GM/dL (11.7-16.9); MCH 28.4 pg (25.7-33.7); MCHC 33.5 g/dl (32.0-35.9); MEAN CELL VOLUME 84.8 fl (80-96); MEAN PLT VOLUME 7.5 fl (7.5-11.1); MONO % 6.3 % (3.8-10.2); NEUT % 49.5 % (42.8-82.8); PLATELET COUNT 197 10^3/uL (134-434); RBC 4.77 M/mm3 (4.00-5.60); RDW 14.1 % (11.9-15.9); WHITE BLOOD COUNT 6.4 K/mm3 (4.0-10.0)
[2022-03-29 13:50] LABS: ALBUMIN 3.5 g/dl (3.4-5.0); BLOOD UREA NITROGEN 15.7 mg/dL (7-18); CALCIUM 8.5 mg/dL (8.5-10.1); MAGNESIUM 2.1 mg/dL (1.8-2.4)
[2022-03-29 13:53] LABS: CREATININE 0.8 mg/dL (0.55-1.3)
[2022-03-29 13:55] LABS: BILIRUBIN,TOTAL 0.5 mg/dL (0.2-1); TOT PROT 6.8 g/dl (6.4-8.2)
== END 2022-03-29 16:33 | disposition home or self-care (01) ==
LOC: JER 11:24
DX: R07.9 Chest pain, unspecified (principal); M79.605 Pain in left leg; M79.604 Pain in right leg
CPT/HCPCS: 36415; 71046-TC-FY; 80053; 82550; 83735; 84484; 85025; 93005; 93010; 99285-25

== ENCOUNTER 2022-04-01 09:36 | Emergency (ER) | payer OTHER ==
[2022-04-01 10:00] VITALS: TEMP 98.4; BMI 28.7
[2022-04-01 10:56] VITALS: BP 165/106; PULSE 80; RESP 17
== END 2022-04-01 10:55 | disposition left against medical advice (07) ==
LOC: JER 09:36
DX: R07.9 Chest pain, unspecified (principal)
CPT/HCPCS: 93005; 93010; 99284-25

== ENCOUNTER 2022-04-02 09:19 | Emergency (ER) | payer OTHER ==
[2022-04-02 09:30] VITALS: TEMP 97.6; BMI 28.7
[2022-04-02 11:35] LABS: BASO % 0.9 % (0-2.0); EOS % 17.9 % (0-4.5); HEMATOCRIT 43.9 % (35.4-49); HEMOGLOBIN 14.7 GM/dL (11.7-16.9); LYMPH % 21.6 % (8-40); MCH 28.3 pg (25.7-33.7); MCHC 33.5 g/dl (32.0-35.9); MEAN CELL VOLUME 84.3 fl (80-96); MEAN PLT VOLUME 8.8 fl (7.5-11.1); MONO % 6.1 % (3.8-10.2); NEUT % 53.5 % (42.8-82.8); PLATELET COUNT 231 10^3/uL (134-434); RBC 5.21 M/mm3 (4.00-5.60); RDW 13.8 % (11.9-15.9); WHITE BLOOD COUNT 8.3 K/mm3 (4.0-10.0)
[2022-04-02 11:44] LABS: INR 1.08 (0.83-1.09); PROTHROMBIN TIME (PATIENT) 12.5 SEC (9.7-13.0)
[2022-04-02 11:47] LABS: ACTIVATED PTT 21.3 SECONDS (25.2-36.5)
[2022-04-02 12:16] LABS: ALBUMIN 3.8 g/dl (3.4-5.0); BLOOD UREA NITROGEN 18.7 mg/dL (7-18)
[2022-04-02 12:19] LABS: CREATININE 0.9 mg/dL (0.55-1.3)
[2022-04-02 12:21] LABS: BILIRUBIN,TOTAL 0.7 mg/dL (0.2-1); TOT PROT 7.7 g/dl (6.4-8.2)
[2022-04-02 12:57] VITALS: PULSE 73
[2022-04-02] MEDS ORDERED: HYDROCORTISONE 0.5% TOPICAL CREAM 30 GM TUBE TP ONE (13:03)
[2022-04-02 14:12] VITALS: BP 171/90; RESP 18
== END 2022-04-02 14:14 | disposition home or self-care (01) ==
LOC: JER 09:19
DX: R07.9 Chest pain, unspecified (principal); I10 Essential (primary) hypertension
CPT/HCPCS: 0241U-QW; 36415; 71045-TC-FY; 80053; 84484; 85025; 85610; 85730; 93005; 93010; 99285-25

== ENCOUNTER 2022-04-12 08:08 | Emergency (ER) | payer OTHER ==
[2022-04-12 09:09] VITALS: TEMP 98.2; BMI 28.7
[2022-04-12 10:05] LABS: BASO % 0.8 % (0-2.0); EOS % 19.8 % (0-4.5); HEMATOCRIT 41.6 % (35.4-49); HEMOGLOBIN 13.9 GM/dL (11.7-16.9); LYMPH % 20.1 % (8-40); MCH 28.2 pg (25.7-33.7); MCHC 33.4 g/dl (32.0-35.9); MEAN CELL VOLUME 84.5 fl (80-96); MONO % 7.6 % (3.8-10.2); NEUT % 51.7 % (42.8-82.8); PLATELET COUNT 215 10^3/uL (134-434); RBC 4.92 M/mm3 (4.00-5.60); RDW 13.8 % (11.9-15.9); WHITE BLOOD COUNT 8.6 K/mm3 (4.0-10.0)
[2022-04-12 10:23] LABS: CHLORIDE 108 mmol/L (98-107); SODIUM 140 mmol/L (136-145)
[2022-04-12 10:25] LABS: CALCIUM 8.8 mg/dL (8.5-10.1)
[2022-04-12 10:26] LABS: ALBUMIN 3.8 g/dl (3.4-5.0); ANION GAP 4 MMOL/L (8-16); BLOOD UREA NITROGEN 18.7 mg/dL (7-18); CO2 28 mmol/L (21-32); GLUCOSE,RANDOM 96 mg/dL (74-106)
[2022-04-12 10:29] LABS: CREATININE 0.8 mg/dL (0.55-1.3); SGOT/AST 25 U/L (15-37); SGPT/ALT 30 U/L (13-61)
[2022-04-12 10:30] LABS: TOT PROT 7.6 g/dl (6.4-8.2)
[2022-04-12 10:31] LABS: ALK PHOS 70 U/L (45-117); BILIRUBIN,TOTAL 0.7 mg/dL (0.2-1)
[2022-04-12] MEDS ORDERED: ALBUTEROL SO4 2.5/IPRATROPIUM 0.5 INH SOL 3 ML VIAL.NEB. NEB ONE ×2 (10:46→11:31)
[2022-04-12 13:50] VITALS: BP 169/82; PULSE 85; RESP 17
== END 2022-04-12 14:04 | disposition home or self-care (01) ==
LOC: JER 08:08
PROC: 3E0F7GC Introduction of Other Therapeutic Substance into Respiratory Tract, Via Natural or Artificial Opening (ICD-10-PCS; principal; 2022-04-12)
DX: J20.9 Acute bronchitis, unspecified (principal)
CPT/HCPCS: 0241U-QW; 36415; 71046-TC-FY; 80053; 80307; 84484; 85025; 93005; 93010; 99285-25

== ENCOUNTER 2022-04-12 16:51 | Emergency (ER) | payer OTHER ==
[2022-04-12 17:25] VITALS: BP 126/84; PULSE 97; RESP 18; TEMP 97.5; BMI 27.2
[2022-04-12 18:42] LABS: EPI CELLS 2 /uL (0-25.1); HYALINE CASTS 0 /uL (0-3.1); PH,URINE 5.5 (5.0-8.0); URINE APPEARANCE CLEAR; URINE BACTERIA 6 /uL (0-1359); URINE BILIRUBIN NEGATIVE (NEGATIVE); URINE COLOR YELLOW; URINE GLUCOSE (UA) NEGATIVE (NEGATIVE); URINE KETONE NEGATIVE (NEGATIVE); URINE LEUK ESTERASE NEGATIVE (NEGATIVE); URINE NITRITE NEGATIVE (NEGATIVE); URINE PROTEIN NEGATIVE (NEGATIVE); URINE RBC 11 /uL (0-23.9); URINE UROBILINOGEN 0.2 mg/dL (0.2-1.0); URINE WBC 2 /uL (0-25.8)
== END 2022-04-12 18:44 | disposition left against medical advice (07) ==
LOC: JER 16:51
DX: R07.9 Chest pain, unspecified (principal)
CPT/HCPCS: 36415; 81003; 84484; 87086; 93005; 93010; 99284-25

== ENCOUNTER 2022-04-22 09:25 | Emergency (ER) | payer OTHER ==
[2022-04-22 09:31] VITALS: BMI 24.3
[2022-04-22 10:41] VITALS: TEMP 97.9
[2022-04-22 11:19] LABS: BASO % 0.7 % (0-2.0); EOS % 16.8 % (0-4.5); HEMATOCRIT 41.7 % (35.4-49); LYMPH % 23.8 % (8-40); MCH 28.2 pg (25.7-33.7); MCHC 33.6 g/dl (32.0-35.9); MEAN PLT VOLUME 7.9 fl (7.5-11.1); NEUT % 50.7 % (42.8-82.8); PLATELET COUNT 228 10^3/uL (134-434); RBC 4.96 M/mm3 (4.00-5.60); RDW 13.7 % (11.9-15.9)
[2022-04-22 11:27] LABS: BLOOD UREA NITROGEN 17.2 mg/dL (7-18); CALCIUM 8.8 mg/dL (8.5-10.1); MAGNESIUM 2.4 mg/dL (1.8-2.4)
[2022-04-22 11:28] LABS: ALBUMIN 3.7 g/dl (3.4-5.0)
[2022-04-22 11:31] LABS: CREATININE 0.9 mg/dL (0.55-1.3)
[2022-04-22 11:32] LABS: BILIRUBIN,TOTAL 0.6 mg/dL (0.2-1); TOT PROT 7.1 g/dl (6.4-8.2)
[2022-04-22 11:47] VITALS: BP 177/87; PULSE 87; RESP 19
== END 2022-04-22 12:23 | disposition home or self-care (01) ==
LOC: JER 09:25
DX: R07.82 Intercostal pain (principal); R06.02 Shortness of breath
CPT/HCPCS: 0241U-QW; 36415; 71045-TC-FY; 80053; 83735; 84484; 85025; 93005; 93010; 99285-25

== ENCOUNTER 2022-07-20 20:50 | Emergency (ER) | payer OTHER ==
[2022-07-20 21:05] VITALS: BMI 26.3
[2022-07-20 22:04] LABS: BASO % 1.1 % (0-2.0); EOS % 13.6 % (0-4.5); HEMATOCRIT 39.2 % (35.4-49); HEMOGLOBIN 13.1 GM/dL (11.7-16.9); LYMPH % 25.5 % (8-40); MCH 27.2 pg (25.7-33.7); MCHC 33.4 g/dl (32.0-35.9); MEAN CELL VOLUME 81.6 fl (80-96); MEAN PLT VOLUME 7.5 fl (7.5-11.1); MONO % 8.9 % (3.8-10.2); NEUT % 50.9 % (42.8-82.8); PLATELET COUNT 219 10^3/uL (134-434); RDW 13.8 % (11.9-15.9); WHITE BLOOD COUNT 8.5 K/mm3 (4.0-10.0)
[2022-07-20 22:31] LABS: POTASSIUM 4.3 mmol/L (3.5-5.1)
[2022-07-20 22:33] LABS: ALBUMIN 3.7 g/dl (3.4-5.0); CALCIUM 8.7 mg/dL (8.5-10.1)
[2022-07-20 22:34] LABS: BLOOD UREA NITROGEN 23.7 mg/dL (7-18)
[2022-07-20 22:37] LABS: CREATININE 0.9 mg/dL (0.55-1.3)
[2022-07-20 22:38] LABS: BILIRUBIN,TOTAL 0.3 mg/dL (0.2-1); TOT PROT 7.1 g/dl (6.4-8.2)
[2022-07-20 22:43] LABS: N-TERMINAL BNP 589.4 pg/ml (5-450)
[2022-07-21 00:42] VITALS: RESP 20
[2022-07-21 05:36] VITALS: BP 185/92; PULSE 74; TEMP 97
[2022-07-21] MEDS ORDERED: ACETAMINOPHEN 325 MG TABLET (FP) PO ONE (05:54)
[2022-07-21] MEDS ORDERED: ACETAMINOPHEN 325 MG TABLET (FP) ONE (06:01)
== END 2022-07-21 07:10 | disposition home or self-care (01) ==
LOC: JER 20:50
DX: R06.02 Shortness of breath (principal); R07.9 Chest pain, unspecified; R05.1 Acute cough
CPT/HCPCS: 0241U-QW; 36415; 70450-TC; 71045-TC-FY; 80053; 83880; 84484; 85025; 93005; 93010; 99285-25

== ENCOUNTER 2022-10-12 08:42 | Emergency (ER) | payer OTHER ==
[2022-10-12 08:55] VITALS: BMI 27.8
[2022-10-12] MEDS ORDERED: ASPIRIN 81 MG CHEWABLE TABLETS PO ONE (09:15)
[2022-10-12] MEDS ORDERED: ASPIRIN 81 MG CHEWABLE TABLETS ONE (09:26)
[2022-10-12] MEDS ORDERED: ACETAMINOPHEN 325 MG TABLET (FP) PO ONE (10:12)
[2022-10-12] MEDS ORDERED: ACETAMINOPHEN 325 MG TABLET (FP) ONE (10:17)
[2022-10-12] MEDS ORDERED: METOPROLOL TARTRATE 5 MG/5 ML VIAL IVPUSH ONE (10:17)
[2022-10-12 14:22] VITALS: BP 175/95; PULSE 85; RESP 20; TEMP 98.1
== END 2022-10-12 15:10 | disposition left against medical advice (07) ==
LOC: JER 08:42
DX: R07.89 Other chest pain (principal); M79.604 Pain in right leg; R51.9 Headache, unspecified
CPT/HCPCS: 71045-TC-FY; 93005; 93010; 93971-TC; 99285-25

== ENCOUNTER 2023-01-01 08:53 | Inpatient (IN) | payer OTHER ==
[2023-01-01 09:16] VITALS: RESP 16; BMI 27.8
[2023-01-01] MEDS ORDERED: MAG HYDROX/AL HYDROX/SIMETH 30 ML UNIT-DOSE CUP PO ONE (09:35)
[2023-01-01] MEDS ORDERED: FAMOTIDINE 20 MG/50 ML IVPB 20 MG/50 ML MG IVPB ONE ×2 (09:35→10:15)
[2023-01-01] MEDS ORDERED: ACETAMINOPHEN 1000 MG/100 ML BAG IVPB ONE (09:35)
[2023-01-01] MEDS ORDERED: ACETAMINOPHEN INJECTION 100 ML IVPB ONE (10:14)
[2023-01-01] MEDS ORDERED: MAG HYDROX/AL HYDROX/SIMETH 30 ML UNIT-DOSE CUP ONE (10:15)
[2023-01-01 10:51] LABS: BASO % 0.5 % (0-2.0); EOS % 16.2 % (0-4.5); HEMATOCRIT 45.5 % (35.4-49); HEMOGLOBIN 14.7 GM/dL (11.7-16.9); LYMPH % 19.2 % (8-40); MCH 27.2 pg (25.7-33.7); MCHC 32.3 g/dl (32.0-35.9); MEAN CELL VOLUME 84.2 fl (80-96); MEAN PLT VOLUME 8.3 fl (7.5-11.1); MONO % 6.9 % (3.8-10.2); NEUT % 57.2 % (42.8-82.8); PLATELET COUNT 214 10^3/uL (134-434); RBC 5.41 M/mm3 (4.00-5.60); RDW 13.9 % (11.9-15.9); WHITE BLOOD COUNT 8.8 K/mm3 (4.0-10.0)
[2023-01-01 10:58] LABS: INR 2.24 (0.83-1.09); PROTHROMBIN TIME (PATIENT) 25.8 SEC (9.7-13.0)
[2023-01-01 11:20] LABS: POTASSIUM 4.5 mmol/L (3.5-5.1)
[2023-01-01 11:22] LABS: ALBUMIN 3.8 g/dl (3.4-5.0); BLOOD UREA NITROGEN 26.8 mg/dL (7-18); CALCIUM 9.1 mg/dL (8.5-10.1); MAGNESIUM 2.4 mg/dL (1.8-2.4)
[2023-01-01 11:25] LABS: CREATININE 0.9 mg/dL (0.55-1.3)
[2023-01-01 11:27] LABS: BILIRUBIN,TOTAL 0.5 mg/dL (0.2-1); TOT PROT 7.4 g/dl (6.4-8.2)
[2023-01-01 11:32] LABS: URINE APPEARANCE CLEAR; URINE BILIRUBIN NEGATIVE (NEGATIVE); URINE COLOR YELLOW; URINE GLUCOSE (UA) NEGATIVE (NEGATIVE); URINE KETONE NEGATIVE (NEGATIVE); URINE LEUK ESTERASE TRACE (NEGATIVE); URINE NITRITE NEGATIVE (NEGATIVE); URINE PROTEIN NEGATIVE (NEGATIVE); URINE UROBILINOGEN 0.2 mg/dL (0.2-1.0)
[2023-01-01 11:59] LABS: EPI CELLS 8.6 /uL (0-25.1); HYALINE CASTS 0.14 /uL (0-3.1); URINE BACTERIA 39.5 /uL (0-1359); URINE RBC 31.7 /uL (0-23.9); URINE WBC 13.8 /uL (0-25.8)
[2023-01-01 13:27] VITALS: BP 131/74; PULSE 67; TEMP 98
[2023-01-01] MEDS ORDERED: ACETAMINOPHEN 1000 MG/100 ML BAG IVPB PRN (18:00)
[2023-01-01] MEDS ORDERED: MELATONIN 1 MG TABLET PO SCH (22:00)
[2023-01-02] MEDS ORDERED: ENOXAPARIN NA (PORCINE) 40 MG/0.4 ML DISP.SYRIN SQ SCH (10:00)
== END 2023-01-01 18:00 | disposition left against medical advice (07) | DRG 198 ==
LOC: JER 08:53 → JERBED 13:42
PROVIDERS: ADMIT Internal Medicine; ATTEND Internal Medicine
DX: R07.9 Chest pain, unspecified (principal); I24.89 Other forms of acute ischemic heart disease; E46 Unspecified protein-calorie malnutrition; E11.9 Type 2 diabetes mellitus without complications; I08.0 Rheumatic disorders of both mitral and aortic valves; I10 Essential (primary) hypertension; N40.0 Benign prostatic hyperplasia without lower urinary tract symptoms; Z59.00 Homelessness unspecified
CPT/HCPCS: 0241U-QW; 36415; 71045-TC-FY; 80053; 81003; 82607; 82746; 83690; 83735; 84484; 85025; 85610; 85730; 86850; 86900; 86901; 87086; 93005; 93010; 99285-25

== ENCOUNTER 2023-01-01 20:17 | Inpatient (IN) | payer OTHER ==
[2023-01-01] MEDS ORDERED: HALOPERIDOL LACTATE 5 MG/ML ONE (22:52)
[2023-01-01] MEDS ORDERED: HALOPERIDOL LACTATE 5 MG/ML IM ONE (22:54)
[2023-01-02 01:52] LABS: BASO % 0.7 % (0-2.0); EOS % 14.7 % (0-4.5); HEMATOCRIT 40.6 % (35.4-49); HEMOGLOBIN 13.5 GM/dL (11.7-16.9); LYMPH % 28.4 % (8-40); MCH 27.1 pg (25.7-33.7); MCHC 33.2 g/dl (32.0-35.9); MEAN CELL VOLUME 81.8 fl (80-96); MEAN PLT VOLUME 7.6 fl (7.5-11.1); NEUT % 47.2 % (42.8-82.8); PLATELET COUNT 220 10^3/uL (134-434); RBC 4.96 M/mm3 (4.00-5.60); RDW 14.4 % (11.9-15.9); WHITE BLOOD COUNT 8.3 K/mm3 (4.0-10.0)
[2023-01-02 02:14] LABS: POTASSIUM 4.2 mmol/L (3.5-5.1)
[2023-01-02 02:16] LABS: ALBUMIN 3.5 g/dl (3.4-5.0); BLOOD UREA NITROGEN 23.2 mg/dL (7-18); CALCIUM 8.5 mg/dL (8.5-10.1)
[2023-01-02 02:21] LABS: BILIRUBIN,TOTAL 0.6 mg/dL (0.2-1); TOT PROT 6.9 g/dl (6.4-8.2)
[2023-01-02 07:19] LABS: HEMATOCRIT 40.3 % (35.4-49); HEMOGLOBIN 13.1 GM/dL (11.7-16.9); MCHC 32.4 g/dl (32.0-35.9); MEAN CELL VOLUME 83.4 fl (80-96); PLATELET COUNT 218 10^3/uL (134-434); RBC 4.83 M/mm3 (4.00-5.60); RDW 13.9 % (11.9-15.9); WHITE BLOOD COUNT 7.8 K/mm3 (4.0-10.0)
[2023-01-02 07:29] LABS: POTASSIUM 3.6 mmol/L (3.5-5.1)
[2023-01-02 07:31] LABS: ALBUMIN 3.5 g/dl (3.4-5.0); CALCIUM 8.4 mg/dL (8.5-10.1); MAGNESIUM 1.9 mg/dL (1.8-2.4)
[2023-01-02 07:34] LABS: PHOSPHOROUS 3.3 mg/dL (2.5-4.9)
[2023-01-02 07:36] LABS: BILIRUBIN,TOTAL 0.8 mg/dL (0.2-1); TOT PROT 6.6 g/dl (6.4-8.2)
[2023-01-02] MEDS ORDERED: FOLIC ACID INJECTION - 1 MG, THIAMINE HCL 100 MG, MULTIVIT INJECTION ADULT 10 ML in SOD... IVPB ONE (09:30)
[2023-01-02] MEDS ORDERED: ENOXAPARIN NA (PORCINE) 40 MG/0.4 ML DISP.SYRIN SQ ONE (09:55)
[2023-01-02] MEDS ORDERED: MULTIVITAMINS (DAILY MVI) TABLET (FP) ONE (09:55)
[2023-01-02 09:57] LABS: EPI CELLS 2 /uL (0-25.1); HYALINE CASTS 1 /uL (0-3.1); PH,URINE 5.5 (5.0-8.0); URINE APPEARANCE CLEAR; URINE BACTERIA 10 /uL (0-1359); URINE BILIRUBIN NEGATIVE (NEGATIVE); URINE COLOR YELLOW; URINE GLUCOSE (UA) NEGATIVE (NEGATIVE); URINE KETONE NEGATIVE (NEGATIVE); URINE LEUK ESTERASE TRACE (NEGATIVE); URINE NITRITE NEGATIVE (NEGATIVE); URINE PROTEIN NEGATIVE (NEGATIVE); URINE RBC 14 /uL (0-23.9); URINE UROBILINOGEN 0.2 mg/dL (0.2-1.0); URINE WBC 20 /uL (0-25.8)
[2023-01-02] MEDS: MULTIVITAMINS (DAILY MVI) TABLET (FP) PO SCH (09:58)
[2023-01-02] MEDS: ENOXAPARIN NA (PORCINE) 40 MG/0.4 ML DISP.SYRIN SQ SCH (09:58)
[2023-01-02 10:13] LABS: COCAINE, UR NEGATIVE (NEGATIVE); URINE AMPHETAMINES NEGATIVE (NEGATIVE)
[2023-01-02 10:14] LABS: METHADONE, UR NEGATIVE (NEGATIVE); OPIATES, URI NEGATIVE (NEGATIVE); PHENCYCLIDINE,URINE NEGATIVE (NEGATIVE); URINE BARBITURATES NEGATIVE (NEGATIVE); URINE BENZODIAZEPINES NEGATIVE (NEGATIVE)
[2023-01-02] MEDS ORDERED: ACETAMINOPHEN 1000 MG/100 ML BAG IVPB PRN (10:44)
[2023-01-02 11:44] LABS: INR 1.33 (0.83-1.09); PROTHROMBIN TIME (PATIENT) 15.4 SEC (9.7-13.0)
[2023-01-02] MEDS ORDERED: HALOPERIDOL LACTATE 5 MG/ML IM ONE (15:47)
[2023-01-02] MEDS ORDERED: LORazepam 2 MG/ML SDV VIAL IVPUSH PRN (15:48)
[2023-01-02] MEDS ORDERED: OLANZapine 2.5 MG TABLET PO SCH (22:00)
[2023-01-02] MEDS: MELATONIN 1 MG TABLET PO SCH (22:50)
[2023-01-03] MEDS: ENOXAPARIN NA (PORCINE) 40 MG/0.4 ML DISP.SYRIN SQ SCH (10:02)
[2023-01-03] MEDS: MULTIVITAMINS (DAILY MVI) TABLET (FP) PO SCH (10:02)
[2023-01-03] MEDS: ACETAMINOPHEN 325 MG TABLET (FP) PO PRN (12:05)
[2023-01-03] MEDS: CEFTRIAXONE 2 GM in DEXTROSE 5%-WATER 100 ML IVPB SCH (14:26)
[2023-01-03] MEDS: OLANZapine 5 MG TABLET PO SCH (21:30)
[2023-01-03] MEDS: MELATONIN 1 MG TABLET PO SCH (21:30)
[2023-01-04 08:22] LABS: BASO % 0.6 % (0-2.0); EOS % 19.9 % (0-4.5); HEMOGLOBIN 13.9 GM/dL (11.7-16.9); LYMPH % 32.4 % (8-40); MCH 26.9 pg (25.7-33.7); MCHC 32.2 g/dl (32.0-35.9); MEAN CELL VOLUME 83.6 fl (80-96); MEAN PLT VOLUME 7.9 fl (7.5-11.1); MONO % 9.9 % (3.8-10.2); NEUT % 37.2 % (42.8-82.8); PLATELET COUNT 221 10^3/uL (134-434); RBC 5.14 M/mm3 (4.00-5.60); RDW 13.9 % (11.9-15.9); WHITE BLOOD COUNT 7.5 K/mm3 (4.0-10.0)
[2023-01-04 08:29] LABS: ALBUMIN 3.7 g/dl (3.4-5.0); BLOOD UREA NITROGEN 19.8 mg/dL (7-18)
[2023-01-04 08:30] LABS: CALCIUM 9.3 mg/dL (8.5-10.1)
[2023-01-04 08:32] LABS: MAGNESIUM 2.1 mg/dL (1.8-2.4)
[2023-01-04 08:34] LABS: CREATININE 0.9 mg/dL (0.55-1.3)
[2023-01-04 08:35] LABS: BILIRUBIN,TOTAL 0.8 mg/dL (0.2-1); TOT PROT 7.3 g/dl (6.4-8.2)
[2023-01-04] MEDS: MULTIVITAMINS (DAILY MVI) TABLET (FP) PO SCH (09:04)
[2023-01-04] MEDS: ENOXAPARIN NA (PORCINE) 40 MG/0.4 ML DISP.SYRIN SQ SCH (09:04)
[2023-01-04] MEDS: CEFTRIAXONE 2 GM in DEXTROSE 5%-WATER 100 ML IVPB SCH (09:04)
[2023-01-04] MEDS: OLANZapine 5 MG TABLET PO SCH (21:06)
[2023-01-04] MEDS: MELATONIN 1 MG TABLET PO SCH (21:07)
[2023-01-05] MEDS: CEFTRIAXONE 2 GM in DEXTROSE 5%-WATER 100 ML IVPB SCH (11:03)
[2023-01-05] MEDS: ENOXAPARIN NA (PORCINE) 40 MG/0.4 ML DISP.SYRIN SQ SCH (11:03)
[2023-01-05] MEDS: MULTIVITAMINS (DAILY MVI) TABLET (FP) PO SCH (11:03)
[2023-01-05] MEDS: ACETAMINOPHEN 325 MG TABLET (FP) PO PRN (11:50)
[2023-01-05 12:37] LABS: BASO % 0.7 % (0-2.0); EOS % 18.5 % (0-4.5); HEMATOCRIT 41.6 % (35.4-49); HEMOGLOBIN 13.7 GM/dL (11.7-16.9); MEAN CELL VOLUME 81.9 fl (80-96); MEAN PLT VOLUME 7.9 fl (7.5-11.1); MONO % 8.2 % (3.8-10.2); NEUT % 44.6 % (42.8-82.8); PLATELET COUNT 225 10^3/uL (134-434); RBC 5.09 M/mm3 (4.00-5.60); RDW 14.1 % (11.9-15.9); WHITE BLOOD COUNT 6.3 K/mm3 (4.0-10.0)
[2023-01-05 12:42] LABS: POTASSIUM 4.1 mmol/L (3.5-5.1)
[2023-01-05 12:45] LABS: ALBUMIN 3.6 g/dl (3.4-5.0); CALCIUM 8.6 mg/dL (8.5-10.1); MAGNESIUM 2.2 mg/dL (1.8-2.4)
[2023-01-05 12:50] LABS: BILIRUBIN,TOTAL 0.7 mg/dL (0.2-1)
[2023-01-05 12:52] LABS: TOT PROT 7.2 g/dl (6.4-8.2)
[2023-01-05] MEDS: OLANZapine 5 MG TABLET PO SCH (21:34)
[2023-01-05] MEDS: MELATONIN 1 MG TABLET PO SCH (21:34)
[2023-01-06] MEDS: MULTIVITAMINS (DAILY MVI) TABLET (FP) PO SCH (09:32)
[2023-01-06] MEDS: CEFTRIAXONE 2 GM in DEXTROSE 5%-WATER 100 ML IVPB SCH (09:32)
[2023-01-06] MEDS: ENOXAPARIN NA (PORCINE) 40 MG/0.4 ML DISP.SYRIN SQ SCH (09:33)
[2023-01-06] MEDS: OLANZapine 5 MG TABLET PO SCH (21:40)
[2023-01-06] MEDS: MELATONIN 1 MG TABLET PO SCH (21:40)
[2023-01-07] MEDS: CEFTRIAXONE 2 GM in DEXTROSE 5%-WATER 100 ML IVPB SCH (09:11)
[2023-01-07] MEDS: ENOXAPARIN NA (PORCINE) 40 MG/0.4 ML DISP.SYRIN SQ SCH (09:11)
[2023-01-07] MEDS: MULTIVITAMINS (DAILY MVI) TABLET (FP) PO SCH (09:12)
[2023-01-07] MEDS ORDERED: ACYCLOVIR 1000 MG (50MG/ML) VIAL IVPB SCH (14:15)
[2023-01-07] MEDS: ACYCLOVIR SODIUM IVPB SCH (15:23)
[2023-01-07] MEDS: SODIUM CHLORIDE IVPB SCH (15:23)
[2023-01-07] MEDS: OLANZapine 5 MG TABLET PO SCH (21:40)
[2023-01-07] MEDS: MELATONIN 1 MG TABLET PO SCH (21:40)
[2023-01-08] MEDS: ACYCLOVIR SODIUM IVPB SCH ×3 (02:02→18:51)
[2023-01-08] MEDS: SODIUM CHLORIDE IVPB SCH ×3 (02:02→18:51)
[2023-01-08] MEDS: ENOXAPARIN NA (PORCINE) 40 MG/0.4 ML DISP.SYRIN SQ SCH (09:09)
[2023-01-08] MEDS: CEFTRIAXONE 2 GM in DEXTROSE 5%-WATER 100 ML IVPB SCH (09:09)
[2023-01-08] MEDS: MULTIVITAMINS (DAILY MVI) TABLET (FP) PO SCH (09:10)
[2023-01-08] MEDS: SODIUM CHLORIDE 1,000 ML IV SCH (09:10)
[2023-01-08] MEDS: DOXYCYCLINE HYCLATE 100 MG CAPSULE PO SCH (17:50)
[2023-01-08] MEDS: MELATONIN 1 MG TABLET PO SCH (21:52)
[2023-01-08] MEDS: OLANZapine 5 MG TABLET PO SCH (21:52)
[2023-01-09] MEDS ORDERED: hydrOXYzine PAMOATE 25 MG CAPSULE (FP) PO ONE (00:39)
[2023-01-09] MEDS: SODIUM CHLORIDE IVPB SCH ×3 (02:38→18:32)
[2023-01-09] MEDS: ACYCLOVIR SODIUM IVPB SCH ×3 (02:38→18:32)
[2023-01-09] MEDS: MULTIVITAMINS (DAILY MVI) TABLET (FP) PO SCH (12:35)
[2023-01-09] MEDS: ENOXAPARIN NA (PORCINE) 40 MG/0.4 ML DISP.SYRIN SQ SCH (12:35)
[2023-01-09] MEDS: DOXYCYCLINE HYCLATE 100 MG CAPSULE PO SCH ×2 (12:35→18:33)
[2023-01-09] MEDS: CEFTRIAXONE 2 GM in DEXTROSE 5%-WATER 100 ML IVPB SCH (12:35)
[2023-01-09] MEDS: SODIUM CHLORIDE 1,000 ML IV SCH (12:36)
[2023-01-09] MEDS: OLANZapine 5 MG TABLET PO SCH (21:24)
[2023-01-09] MEDS: MELATONIN 1 MG TABLET PO SCH (21:24)
[2023-01-10] MEDS: SODIUM CHLORIDE IVPB SCH ×2 (02:42→13:39)
[2023-01-10] MEDS: ACYCLOVIR SODIUM IVPB SCH ×2 (02:42→13:39)
[2023-01-10] MEDS: SODIUM CHLORIDE 1,000 ML IV SCH ×2 (06:41→17:18)
[2023-01-10] MEDS: ENOXAPARIN NA (PORCINE) 40 MG/0.4 ML DISP.SYRIN SQ SCH (11:58)
[2023-01-10] MEDS: DOXYCYCLINE HYCLATE 100 MG CAPSULE PO SCH ×2 (11:59→17:18)
[2023-01-10] MEDS: MULTIVITAMINS (DAILY MVI) TABLET (FP) PO SCH (11:59)
[2023-01-10] MEDS: CEFTRIAXONE 2 GM in DEXTROSE 5%-WATER 100 ML IVPB SCH (11:59)
[2023-01-10] MEDS: OLANZapine 5 MG TABLET PO SCH (21:16)
[2023-01-10] MEDS: valACYclovir HCL 500 MG TABLET (FP) PO SCH (21:16)
[2023-01-10] MEDS: MELATONIN 1 MG TABLET PO SCH (21:16)
[2023-01-11] MEDS ORDERED: LORazepam 2 MG/ML SDV VIAL IM PRN (07:57)
[2023-01-11] MEDS ORDERED: HALOPERIDOL LACTATE 5 MG/ML IM ONE (08:30)
[2023-01-11] MEDS: MULTIVITAMINS (DAILY MVI) TABLET (FP) PO SCH (09:12)
[2023-01-11] MEDS: ENOXAPARIN NA (PORCINE) 40 MG/0.4 ML DISP.SYRIN SQ SCH (09:12)
[2023-01-11] MEDS: DOXYCYCLINE HYCLATE 100 MG CAPSULE PO SCH ×2 (09:12→17:26)
[2023-01-11] MEDS: valACYclovir HCL 500 MG TABLET (FP) PO SCH ×2 (09:12→21:56)
[2023-01-11] MEDS: CEFTRIAXONE 2 GM in DEXTROSE 5%-WATER 100 ML IVPB SCH (09:13)
[2023-01-11] MEDS: SODIUM CHLORIDE 1,000 ML IV SCH (17:27)
[2023-01-11] MEDS ORDERED: LOSARTAN POTASSIUM 50 MG TABLET PO SCH (21:45)
[2023-01-11] MEDS: MELATONIN 1 MG TABLET PO SCH (21:56)
[2023-01-11] MEDS: OLANZapine 5 MG TABLET PO SCH (21:56)
[2023-01-12] MEDS ORDERED: amLODIPine BESYLATE 2.5 MG TABLET (FP) PO SCH (10:00)
[2023-01-12] MEDS: LOSARTAN POTASSIUM 50 MG TABLET PO SCH (10:47)
[2023-01-12] MEDS: DOXYCYCLINE HYCLATE 100 MG CAPSULE PO SCH ×2 (10:47→17:41)
[2023-01-12] MEDS: MULTIVITAMINS (DAILY MVI) TABLET (FP) PO SCH (10:48)
[2023-01-12] MEDS: valACYclovir HCL 500 MG TABLET (FP) PO SCH ×2 (10:48→21:21)
[2023-01-12] MEDS: ENOXAPARIN NA (PORCINE) 40 MG/0.4 ML DISP.SYRIN SQ SCH (10:49)
[2023-01-12] MEDS: CEFTRIAXONE 2 GM in DEXTROSE 5%-WATER 100 ML IVPB SCH (10:49)
[2023-01-12] MEDS: OLANZapine 5 MG TABLET PO SCH (21:21)
[2023-01-12] MEDS: MELATONIN 1 MG TABLET PO SCH (21:21)
[2023-01-13] MEDS: DOXYCYCLINE HYCLATE 100 MG CAPSULE PO SCH ×2 (10:44→17:07)
[2023-01-13] MEDS: ENOXAPARIN NA (PORCINE) 40 MG/0.4 ML DISP.SYRIN SQ SCH (10:44)
[2023-01-13] MEDS: CEFTRIAXONE 2 GM in DEXTROSE 5%-WATER 100 ML IVPB SCH (10:44)
[2023-01-13] MEDS: MULTIVITAMINS (DAILY MVI) TABLET (FP) PO SCH (10:44)
[2023-01-13] MEDS: valACYclovir HCL 500 MG TABLET (FP) PO SCH ×2 (10:44→21:24)
[2023-01-13] MEDS: LOSARTAN POTASSIUM 50 MG TABLET PO SCH (10:45)
[2023-01-13] MEDS: OLANZapine 5 MG TABLET PO SCH (21:24)
[2023-01-13] MEDS: MELATONIN 1 MG TABLET PO SCH (21:24)
[2023-01-14] MEDS: valACYclovir HCL 500 MG TABLET (FP) PO SCH ×2 (10:26→21:22)
[2023-01-14] MEDS: ENOXAPARIN NA (PORCINE) 40 MG/0.4 ML DISP.SYRIN SQ SCH (10:26)
[2023-01-14] MEDS: LOSARTAN POTASSIUM 50 MG TABLET PO SCH (10:26)
[2023-01-14] MEDS: MULTIVITAMINS (DAILY MVI) TABLET (FP) PO SCH (10:27)
[2023-01-14] MEDS: DOXYCYCLINE HYCLATE 100 MG CAPSULE PO SCH ×2 (10:27→17:03)
[2023-01-14] MEDS: CEFTRIAXONE 2 GM in DEXTROSE 5%-WATER 100 ML IVPB SCH (10:36)
[2023-01-14] MEDS: MELATONIN 1 MG TABLET PO SCH (21:22)
[2023-01-14] MEDS: OLANZapine 5 MG TABLET PO SCH (21:22)
[2023-01-15] MEDS: CEFTRIAXONE 2 GM in DEXTROSE 5%-WATER 100 ML IVPB SCH (09:52)
[2023-01-15] MEDS: MULTIVITAMINS (DAILY MVI) TABLET (FP) PO SCH (09:53)
[2023-01-15] MEDS: ENOXAPARIN NA (PORCINE) 40 MG/0.4 ML DISP.SYRIN SQ SCH (09:53)
[2023-01-15] MEDS: DOXYCYCLINE HYCLATE 100 MG CAPSULE PO SCH ×2 (09:53→17:44)
[2023-01-15] MEDS: LOSARTAN POTASSIUM 50 MG TABLET PO SCH (09:53)
[2023-01-15] MEDS: valACYclovir HCL 500 MG TABLET (FP) PO SCH (09:53)
[2023-01-15] MEDS: OLANZapine 5 MG TABLET PO SCH (21:38)
[2023-01-15] MEDS: MELATONIN 1 MG TABLET PO SCH (21:38)
[2023-01-16] MEDS ORDERED: CEFTRIAXONE 2 GM in DEXTROSE 5%-WATER 100 ML IVPB ONE (10:00)
[2023-01-16] MEDS: DOXYCYCLINE HYCLATE 100 MG CAPSULE PO SCH (10:35)
[2023-01-16] MEDS: LOSARTAN POTASSIUM 50 MG TABLET PO SCH (10:35)
[2023-01-16] MEDS: MULTIVITAMINS (DAILY MVI) TABLET (FP) PO SCH (10:35)
[2023-01-16] MEDS: ENOXAPARIN NA (PORCINE) 40 MG/0.4 ML DISP.SYRIN SQ SCH (10:35)
[2023-01-16 13:28] VITALS: BMI 28.8
[2023-01-16 14:43] VITALS: BP 143/53; PULSE 92; RESP 20; TEMP 97.3
== END 2023-01-16 17:52 | disposition home or self-care (01) | DRG 42 ==
LOC: JER 20:17 → JERBED 01-02 02:37 → OBSVTOIN 01-02 11:55 → J7W 01-02 14:31
PROVIDERS: ADMIT Internal Medicine; ATTEND Nurse Practitioner Acute Care
DX: A52.3 Neurosyphilis, unspecified (principal); B02.9 Zoster without complications; E11.9 Type 2 diabetes mellitus without complications; I10 Essential (primary) hypertension; N40.0 Benign prostatic hyperplasia without lower urinary tract symptoms; R21 Rash and other nonspecific skin eruption; Z59.00 Homelessness unspecified; R07.9 Chest pain, unspecified
CPT/HCPCS: 36415; 70450-TC; 80053; 80307; 81003; 82140; 83735; 84100; 84439; 84443; 84484; 85025; 85027; 85610; 85730; 86593; 86780; 87086; 87635; 97116-GP; 97161-GP; 99285-25; G0378

== ENCOUNTER 2023-02-01 08:57 | Emergency (ER) | payer OTHER ==
[2023-02-01 09:37] VITALS: BP 171/92; PULSE 79; RESP 16; TEMP 97.9; BMI 33.2
[2023-02-01 10:43] LABS: BASO % 0.8 % (0-2.0); EOS % 14.7 % (0-4.5); HEMATOCRIT 43.7 % (35.4-49); HEMOGLOBIN 14.6 GM/dL (11.7-16.9); MCH 28.1 pg (25.7-33.7); MCHC 33.4 g/dl (32.0-35.9); MEAN CELL VOLUME 84.2 fl (80-96); MONO % 8.1 % (3.8-10.2); NEUT % 51.4 % (42.8-82.8); PLATELET COUNT 225 10^3/uL (134-434); RDW 14.7 % (11.9-15.9); WHITE BLOOD COUNT 6.8 K/mm3 (4.0-10.0)
[2023-02-01 10:58] LABS: INR 1.19 (0.83-1.09); PROTHROMBIN TIME (PATIENT) 13.8 SEC (9.7-13.0)
[2023-02-01 11:01] LABS: ACTIVATED PTT 28.3 SECONDS (25.2-36.5)
[2023-02-01 11:04] LABS: POTASSIUM 3.9 mmol/L (3.5-5.1)
[2023-02-01 11:07] LABS: MAGNESIUM 2.2 mg/dL (1.8-2.4)
[2023-02-01 11:08] LABS: ALBUMIN 3.7 g/dl (3.4-5.0)
[2023-02-01 11:10] LABS: CREATININE 1.1 mg/dL (0.55-1.3)
[2023-02-01 11:12] LABS: TOT PROT 7.7 g/dl (6.4-8.2)
[2023-02-01 11:17] LABS: BILIRUBIN,TOTAL 0.7 mg/dL (0.2-1)
[2023-02-01 19:53] LABS: HIV INTERPRETATION NEGATIVE (NEGATIVE)
== END 2023-02-01 15:00 | disposition left against medical advice (07) ==
LOC: JER 08:57
DX: R07.89 Other chest pain (principal); R10.9 Unspecified abdominal pain; R41.0 Disorientation, unspecified; Z20.822 Contact with and (suspected) exposure to COVID-19
CPT/HCPCS: 0241U-QW; 36415; 70450-TC; 71045-TC-FY; 80053; 82140; 82550; 83605; 83690; 83735; 84484; 85025; 85610; 85730; 87389; 93005; 93010; 99285-25

== ENCOUNTER 2023-03-30 15:52 | Emergency (ER) | payer OTHER ==
[2023-03-30 16:11] VITALS: BP 129/80; PULSE 89; RESP 18; TEMP 98.8; BMI 26.6
[2023-03-30 17:44] LABS: BASO % 0.5 % (0-2.0); EOS % 16.5 % (0-4.5); HEMATOCRIT 39.7 % (35.4-49); HEMOGLOBIN 13.3 GM/dL (11.7-16.9); LYMPH % 22.7 % (8-40); MCHC 33.5 g/dl (32.0-35.9); MEAN CELL VOLUME 83.8 fl (80-96); MEAN PLT VOLUME 7.7 fl (7.5-11.1); MONO % 6.6 % (3.8-10.2); NEUT % 53.7 % (42.8-82.8); PLATELET COUNT 232 10^3/uL (134-434); RBC 4.74 M/mm3 (4.00-5.60); RDW 14.5 % (11.9-15.9); WHITE BLOOD COUNT 8.5 K/mm3 (4.0-10.0)
[2023-03-30 17:45] LABS: EPI CELLS 5 /uL (0-25.1); HYALINE CASTS 0 /uL (0-3.1); PH,URINE 5.5 (5.0-8.0); URINE APPEARANCE CLEAR; URINE BACTERIA 15 /uL (0-1359); URINE BILIRUBIN NEGATIVE (NEGATIVE); URINE COLOR YELLOW; URINE GLUCOSE (UA) NEGATIVE (NEGATIVE); URINE KETONE NEGATIVE (NEGATIVE); URINE LEUK ESTERASE NEGATIVE (NEGATIVE); URINE NITRITE NEGATIVE (NEGATIVE); URINE PROTEIN NEGATIVE (NEGATIVE); URINE UROBILINOGEN 0.2 mg/dL (0.2-1.0); URINE WBC 12 /uL (0-25.8)
[2023-03-30 18:08] LABS: URINE RBC 180.1 /uL (0-23.9); YEAST FEW (NEGATIVE)
[2023-03-30 18:14] LABS: POTASSIUM 4.9 mmol/L (3.5-5.1)
[2023-03-30 18:15] LABS: CALCIUM 9.2 mg/dL (8.5-10.1)
[2023-03-30 18:16] LABS: ALBUMIN 3.5 g/dl (3.4-5.0); BLOOD UREA NITROGEN 25.4 mg/dL (7-18); MAGNESIUM 2.1 mg/dL (1.8-2.4)
[2023-03-30 18:19] LABS: CREATININE 0.9 mg/dL (0.55-1.3)
[2023-03-30 18:21] LABS: BILIRUBIN,TOTAL 0.4 mg/dL (0.2-1); TOT PROT 7.2 g/dl (6.4-8.2)
== END 2023-03-31 06:27 | disposition home or self-care (01) ==
LOC: JER 15:52
DX: R07.89 Other chest pain (principal); Z20.822 Contact with and (suspected) exposure to COVID-19
CPT/HCPCS: 0241U-QW; 36415; 71045-TC-FY; 80053; 81003; 83735; 84484; 85025; 93005; 93010; 99285-25

== ENCOUNTER 2023-05-10 07:43 | Emergency (ER) | payer OTHER ==
[2023-05-10 07:56] VITALS: RESP 20; BMI 33.9
[2023-05-10] MEDS ORDERED: ACETAMINOPHEN 500 MG TABLET (FP) ONE (08:13)
[2023-05-10] MEDS: ACETAMINOPHEN 500 MG TABLET (FP) PO ONE (08:15)
[2023-05-10 10:25] VITALS: BP 172/87; PULSE 76; TEMP 97.5
== END 2023-05-10 11:02 | disposition home or self-care (01) ==
LOC: JER 07:43
DX: M25.561 Pain in right knee (principal); M25.562 Pain in left knee; Y93.01 Activity, walking, marching and hiking
CPT/HCPCS: 73562-TC-LT-FY; 73562-TC-RT-FY; 99284-25

== ENCOUNTER 2023-11-01 15:12 | Emergency (ER) | payer OTHER ==
[2023-11-01 15:23] VITALS: BMI 29.5
[2023-11-01] MEDS ORDERED: ACETAMINOPHEN 325 MG TABLET (FP) ONE (16:17)
[2023-11-01] MEDS: ACETAMINOPHEN 500 MG TABLET (FP) PO ONE (16:27)
[2023-11-01 18:38] VITALS: BP 133/72; PULSE 72; RESP 19; TEMP 97.9
== END 2023-11-01 18:37 | disposition home or self-care (01) ==
LOC: JER 15:12
DX: M25.551 Pain in right hip (principal); M25.552 Pain in left hip; M25.561 Pain in right knee; M25.562 Pain in left knee; G89.29 Other chronic pain
CPT/HCPCS: 99283-25

== ENCOUNTER 2023-12-09 21:48 | Emergency (ER) | payer OTHER ==
[2023-12-09 21:59] VITALS: BP 186/90; PULSE 79; RESP 18; TEMP 98.7; BMI 31.7
[2023-12-10 00:06] LABS: URINE APPEARANCE CLEAR; URINE BILIRUBIN NEGATIVE (NEGATIVE); URINE COLOR YELLOW; URINE GLUCOSE (UA) NEGATIVE (NEGATIVE); URINE KETONE NEGATIVE (NEGATIVE); URINE LEUK ESTERASE NEGATIVE (NEGATIVE); URINE NITRITE NEGATIVE (NEGATIVE); URINE PROTEIN NEGATIVE (NEGATIVE)
[2023-12-10 00:07] LABS: HEMATOCRIT 38.5 % (35.4-49); MCH 27.8 pg (25.7-33.7); MCHC 33.9 g/dl (32.0-35.9); MEAN CELL VOLUME 82.1 fl (80-96); MEAN PLT VOLUME 8.1 fl (7.5-11.1); PLATELET COUNT 236 10^3/uL (134-434); RBC 4.69 M/mm3 (4.00-5.60); RDW 13.9 % (11.9-15.9); WHITE BLOOD COUNT 8.3 K/mm3 (4.0-10.0)
[2023-12-10 00:25] LABS: POTASSIUM 5.6 mmol/L (3.5-5.1)
[2023-12-10 00:26] LABS: ALBUMIN 3.3 g/dl (3.4-5.0); CALCIUM 8.5 mg/dL (8.5-10.1)
[2023-12-10 00:31] LABS: BILIRUBIN,TOTAL 0.6 mg/dL (0.2-1)
== END 2023-12-10 02:16 | disposition home or self-care (01) ==
LOC: JER 21:48
DX: I10 Essential (primary) hypertension (principal); R53.81 Other malaise; M79.604 Pain in right leg; M79.605 Pain in left leg; M79.10 Myalgia, unspecified site; R42 Dizziness and giddiness; Z20.822 Contact with and (suspected) exposure to COVID-19
CPT/HCPCS: 0241U-QW; 36415; 71045-TC-FY; 80053; 81003; 85025; 87086; 93005; 93010; 99285-25

== ENCOUNTER 2023-12-16 09:34 | Observation (INO) | payer OTHER ==
[2023-12-16] MEDS ORDERED: ACETAMINOPHEN INJECTION 100 ML ONE (10:41)
[2023-12-16] MEDS: KETOROLAC TROMETHAMINE 30 MG/1 ML VIAL IM ONE (11:05)
[2023-12-16] MEDS ORDERED: KETOROLAC TROMETHAMINE 30 MG/1 ML VIAL ONE (11:13)
[2023-12-16] MEDS: ACETAMINOPHEN 1000 MG/100 ML BAG IVPB ONE (11:25)
[2023-12-16 12:32] LABS: HEMATOCRIT 41.7 % (35.4-49); HEMOGLOBIN 13.5 GM/dL (11.7-16.9); MCH 27.1 pg (25.7-33.7); MCHC 32.4 g/dl (32.0-35.9); MEAN CELL VOLUME 83.8 fl (80-96); MEAN PLT VOLUME 7.6 fl (7.5-11.1); PLATELET COUNT 213 10^3/uL (134-434); RBC 4.97 M/mm3 (4.00-5.60); RDW 13.5 % (11.9-15.9); WHITE BLOOD COUNT 7.3 K/mm3 (4.0-10.0)
[2023-12-16 12:44] LABS: INR 1.08 (0.83-1.09); PROTHROMBIN TIME (PATIENT) 12.4 SEC (9.7-13.0)
[2023-12-16 12:47] LABS: ACTIVATED PTT 31.7 SECONDS (25.2-36.5)
[2023-12-16 12:50] LABS: POTASSIUM 4.3 mmol/L (3.5-5.1)
[2023-12-16 12:53] LABS: ALBUMIN 3.8 g/dl (3.4-5.0); BLOOD UREA NITROGEN 21.1 mg/dL (7-18); CALCIUM 8.5 mg/dL (8.5-10.1); MAGNESIUM 2.3 mg/dL (1.8-2.4)
[2023-12-16 12:56] LABS: CREATININE 1.1 mg/dL (0.55-1.3)
[2023-12-16 12:58] LABS: BILIRUBIN,TOTAL 1.2 mg/dL (0.2-1); TOT PROT 7.5 g/dl (6.4-8.2)
[2023-12-16 13:24] LABS: ANISOCYTOSIS 0; HELMET CELLS 0; HOWELL-JOLLY BODIES 0; MACROCYTOSIS 0; OVALOCYTE 0; ROULEAU 0; SICKELED CELLS 0; TARGET CELLS 0; TEAR DROP CELLS 0; TOXIC GRANULATION 0
[2023-12-16 17:56] VITALS: BMI 32.7
[2023-12-16] MEDS: FLU VACCINE (FLULAVAL) PF 45 MCG/0.5 ML SYRINGE 2024-2025 IM ONE (18:39)
[2023-12-16] MEDS: CARVEDILOL 25 MG TABLET (FP) PO SCH (21:18)
[2023-12-17 06:13] VITALS: RESP 17
[2023-12-17 09:31] LABS: HEMATOCRIT 37.7 % (35.4-49); HEMOGLOBIN 12.9 GM/dL (11.7-16.9); MCH 28.2 pg (25.7-33.7); MCHC 34.1 g/dl (32.0-35.9); MEAN CELL VOLUME 82.7 fl (80-96); PLATELET COUNT 200 10^3/uL (134-434); RBC 4.56 M/mm3 (4.00-5.60); RDW 13.6 % (11.9-15.9); WHITE BLOOD COUNT 7.1 K/mm3 (4.0-10.0)
[2023-12-17 09:48] LABS: POTASSIUM 4.1 mmol/L (3.5-5.1)
[2023-12-17 09:59] LABS: BLOOD UREA NITROGEN 28.7 mg/dL (7-18)
[2023-12-17 10:01] LABS: CALCIUM 8.6 mg/dL (8.5-10.1)
[2023-12-17 10:02] LABS: CREATININE 1.1 mg/dL (0.55-1.3)
[2023-12-17 10:03] LABS: PHOSPHOROUS 3.6 mg/dL (2.5-4.9)
[2023-12-17 10:06] LABS: CHOLESTEROL 134 mg/dL (50-200)
[2023-12-17 10:07] LABS: LDL CHOLESTEROL (ONLY SJRH) 86 mg/dL (5-100)
[2023-12-17 10:10] LABS: HDL CHOLESTEROL 37 mg/dL (40-60)
[2023-12-17] MEDS: ENOXAPARIN NA (PORCINE) 40 MG/0.4 ML DISP.SYRIN SQ SCH (10:36)
[2023-12-17] MEDS: PANTOPRAZOLE 40 MG TABLET PO SCH (10:36)
[2023-12-17] MEDS: ACETAMINOPHEN 325 MG TABLET (FP) PO PRN (10:36)
[2023-12-17] MEDS: CELECOXIB 200 MG CAPSULE PO SCH (10:36)
[2023-12-17 15:05] VITALS: BP 119/73; PULSE 74; TEMP 98.4
== END 2023-12-17 18:10 | disposition home or self-care (01) ==
LOC: JER 09:34 → JERBED 13:32 → J4S 15:35
PROVIDERS: ADMIT Student in an Organized Health Care Education/Training Program; ATTEND Internal Medicine
PROC: 3E023GC Introduction of Other Therapeutic Substance into Muscle, Percutaneous Approach (ICD-10-PCS; principal; 2023-12-16)
PROC: 3E023GC Introduction of Other Therapeutic Substance into Muscle, Percutaneous Approach (ICD-10-PCS; 2023-12-16)
PROC: 3E0233Z Introduction of Anti-inflammatory into Muscle, Percutaneous Approach (ICD-10-PCS; 2023-12-16)
DX: R07.89 Other chest pain (principal); M79.662 Pain in left lower leg; M79.661 Pain in right lower leg; N40.0 Benign prostatic hyperplasia without lower urinary tract symptoms; J44.9 Chronic obstructive pulmonary disease, unspecified; G89.29 Other chronic pain; I11.0 Hypertensive heart disease with heart failure; M19.90 Unspecified osteoarthritis, unspecified site; E11.9 Type 2 diabetes mellitus without complications; F03.90 Unspecified dementia, unspecified severity, without behavioral disturbance, psychotic disturbance, mood disturbance, and anxiety; R94.31 Abnormal electrocardiogram [ECG] [EKG]; Z23 Encounter for immunization
CPT/HCPCS: 0241U-QW; 36415; 71045-TC-FY; 80048; 80053; 80061; 82962; 83036; 83735; 84100; 84484; 85025; 85027; 85610; 85730; 90656; 93005; 93010; 96372; 99285-25; G0008; G0378

== ENCOUNTER 2023-12-20 06:08 | Observation (INO) | payer OTHER ==
[2023-12-20] MEDS ORDERED: ALBUTEROL SO4 2.5/IPRATROPIUM 0.5 INH SOL 3 ML VIAL.NEB. NEB ONE (06:21)
[2023-12-20] MEDS ORDERED: ACETAMINOPHEN 325 MG TABLET (FP) ONE (06:22)
[2023-12-20] MEDS: ACETAMINOPHEN 500 MG TABLET (FP) PO ONE (06:27)
[2023-12-20] MEDS: ALBUTEROL SO4 2.5/IPRATROPIUM 0.5 INH SOL 3 ML VIAL.NEB. NEB ONE (06:27)
[2023-12-20 08:18] LABS: INR 1.16 (0.83-1.09); PROTHROMBIN TIME (PATIENT) 13.3 SEC (9.7-13.0)
[2023-12-20 08:21] LABS: ACTIVATED PTT 29.4 SECONDS (25.2-36.5)
[2023-12-20 08:27] LABS: BASO % 0.6 % (0-2.0); EOS % 19.7 % (0-4.5); HEMATOCRIT 38.8 % (35.4-49); HEMOGLOBIN 12.9 GM/dL (11.7-16.9); LYMPH % 22.7 % (8-40); MCH 27.7 pg (25.7-33.7); MCHC 33.3 g/dl (32.0-35.9); MEAN CELL VOLUME 83.1 fl (80-96); MEAN PLT VOLUME 8.1 fl (7.5-11.1); MONO % 8.1 % (3.8-10.2); NEUT % 48.9 % (42.8-82.8); PLATELET COUNT 192 10^3/uL (134-434); RBC 4.66 M/mm3 (4.00-5.60); RDW 13.6 % (11.9-15.9); WHITE BLOOD COUNT 8.3 K/mm3 (4.0-10.0)
[2023-12-20 08:45] LABS: POTASSIUM 3.8 mmol/L (3.5-5.1)
[2023-12-20 08:47] LABS: ALBUMIN 3.5 g/dl (3.4-5.0); BLOOD UREA NITROGEN 20.1 mg/dL (7-18); CALCIUM 8.9 mg/dL (8.5-10.1); MAGNESIUM 1.8 mg/dL (1.8-2.4)
[2023-12-20 08:50] LABS: CREATININE 0.8 mg/dL (0.55-1.3)
[2023-12-20 08:52] LABS: BILIRUBIN,TOTAL 0.8 mg/dL (0.2-1); TOT PROT 6.8 g/dl (6.4-8.2)
[2023-12-20 09:43] VITALS: RESP 18
[2023-12-20] MEDS ORDERED: ENOXAPARIN NA (PORCINE) 40 MG/0.4 ML DISP.SYRIN SQ ONE (10:52)
[2023-12-20] MEDS: ENOXAPARIN NA (PORCINE) 40 MG/0.4 ML DISP.SYRIN SQ SCH (10:56)
[2023-12-20] MEDS ORDERED: CARVEDILOL 25 MG TABLET (FP) ONE (23:37)
[2023-12-20] MEDS: CARVEDILOL 25 MG TABLET (FP) PO SCH (23:42)
[2023-12-21 01:20] VITALS: BMI 29.9
[2023-12-21] MEDS: PANTOPRAZOLE 40 MG TABLET PO SCH (09:21)
[2023-12-21] MEDS: FUROSEMIDE 40 MG/4 ML INJECTABLE VIAL IVPUSH ONE (09:21)
[2023-12-21 09:24] LABS: HEMATOCRIT 39.8 % (35.4-49); HEMOGLOBIN 13.2 GM/dL (11.7-16.9); MCH 27.7 pg (25.7-33.7); MCHC 33.1 g/dl (32.0-35.9); MEAN CELL VOLUME 83.7 fl (80-96); MEAN PLT VOLUME 8.5 fl (7.5-11.1); PLATELET COUNT 201 10^3/uL (134-434); RBC 4.76 M/mm3 (4.00-5.60); RDW 13.4 % (11.9-15.9); WHITE BLOOD COUNT 8.1 K/mm3 (4.0-10.0)
[2023-12-21 09:45] LABS: POTASSIUM 3.9 mmol/L (3.5-5.1)
[2023-12-21 09:52] LABS: BLOOD UREA NITROGEN 20.5 mg/dL (7-18)
[2023-12-21 09:55] LABS: CREATININE 0.9 mg/dL (0.55-1.3)
[2023-12-21] MEDS: CELECOXIB 200 MG CAPSULE PO ONE (11:12)
[2023-12-21 13:35] VITALS: BP 143/68; PULSE 69; TEMP 98.2
== END 2023-12-21 13:36 | disposition home or self-care (01) ==
LOC: JER 06:08 → JERBED 09:53 → J4W 12-21 00:30
PROVIDERS: ADMIT Internal Medicine; ATTEND Internal Medicine
PROC: 3E0F7GC Introduction of Other Therapeutic Substance into Respiratory Tract, Via Natural or Artificial Opening (ICD-10-PCS; principal; 2023-12-20)
PROC: 3E023GC Introduction of Other Therapeutic Substance into Muscle, Percutaneous Approach (ICD-10-PCS; 2023-12-20)
PROC: 3E033GC Introduction of Other Therapeutic Substance into Peripheral Vein, Percutaneous Approach (ICD-10-PCS; 2023-12-20)
DX: R53.1 Weakness (principal); D72.10 Eosinophilia, unspecified; F03.90 Unspecified dementia, unspecified severity, without behavioral disturbance, psychotic disturbance, mood disturbance, and anxiety; I10 Essential (primary) hypertension; I25.10 Atherosclerotic heart disease of native coronary artery without angina pectoris; N40.0 Benign prostatic hyperplasia without lower urinary tract symptoms; J44.9 Chronic obstructive pulmonary disease, unspecified; K21.9 Gastro-esophageal reflux disease without esophagitis
CPT/HCPCS: 36415; 71045-TC-FY; 80048; 80053; 83735; 84484; 85025; 85027; 85610; 85730; 86682; 93005; 93010; 93306-TC; 94640; 96372; 96374; 97116-GP; 97161-GP; 99285-25; G0378

== ENCOUNTER 2023-12-24 11:59 | Emergency (ER) | payer OTHER ==
[2023-12-24 12:31] VITALS: BP 155/61; PULSE 70; RESP 26; TEMP 97.6; BMI 26.6
== END 2023-12-24 14:30 | disposition left against medical advice (07) ==
LOC: JER 11:59
DX: R07.9 Chest pain, unspecified (principal)
CPT/HCPCS: 99283-25

== ENCOUNTER 2024-03-07 13:20 | Emergency (ER) | payer SELFPAY ==
[2024-03-07 13:38] VITALS: BMI 24.3
[2024-03-07] MEDS ORDERED: LIDOCAINE 4% PATCH TP ONE (14:16)
[2024-03-07] MEDS ORDERED: ACETAMINOPHEN 325 MG TABLET (FP) ONE (14:16)
[2024-03-07] MEDS: ACETAMINOPHEN 500 MG TABLET (FP) PO ONE (14:20)
[2024-03-07] MEDS: LIDOCAINE 4% PATCH TP ONE (14:21)
[2024-03-07 17:59] VITALS: BP 136/77; PULSE 64; RESP 18; TEMP 97.6
[2024-03-07] MEDS ORDERED: LIDOCAINE PATCH REMOVAL MC ONE (22:00)
== END 2024-03-07 18:00 | disposition home or self-care (01) ==
LOC: JER 13:20
DX: M25.561 Pain in right knee (principal); M25.562 Pain in left knee
CPT/HCPCS: 73562-TC-LT-FY; 73562-TC-RT-FY; 99284-25